=== PATIENT | female | born 1935 | race Hispanic/Latino ===

== ENCOUNTER 2017-07-05 10:25 | Inpatient (IN) | payer MEDICARE, OTHER ==
[~2017-07-05] VITALS: Ht 154.9 cm; Wt 78.5 kg
[2017-07-05 14:02] LABS: BASOPHILS # (AUTO) 0.1 (0.0-0.1); BASOPHILS % 0.6 % (0.0-1.0); EOSINOPHILS # (AUTO) 0.2 (0.0-0.4); EOSINOPHILS % 2.9 % (0.0-6.0); LYMPHOCYTES # (AUTO) 1.6 (1.0-3.2); LYMPHOCYTES % 19.6 % (18.0-39.1); MEAN CORPUSCULAR HEMOGLOBIN 23.2 pg (28-32); MEAN CORPUSCULAR HGB CONC 30.2 g/dL (31-35); MEAN CORPUSCULAR VOLUME 76.8 fL (81-99); MONOCYTES # (AUTO) 0.7 (0.2-0.8); MONOCYTES % 8.2 % (4.4-11.3); NEUTROPHILS # (AUTO) 5.4 (2.1-6.9); NEUTROPHILS % 67.8 % (38.7-80.0); PLATELET COUNT 323 x10e3/uL (140-360); RED BLOOD COUNT 3.23 x10e6/uL (3.6-5.1); RED CELL DISTRIBUTION WIDTH 18.4 % (11.7-14.4)
[2017-07-05 14:07] LABS: HEMATOCRIT 24.8 % (34.2-44.1); HEMOGLOBIN 7.5 g/dL (12.0-16.0)
[2017-07-05 14:12] LABS: INR 0.84; PROTHROMBIN TIME 11.9 seconds (11.9-14.5)
[2017-07-05 14:13] LABS: PARTIAL THROMBOPLASTIN TIME 21.8 seconds (23.8-35.5)
[2017-07-05 14:20] LABS: ALBUMIN 3.5 g/dL (3.5-5.0); ALBUMIN/GLOBULIN RATIO 0.8 (0.8-2.0); ANION GAP 15.1 mmol/L (8-16); CALCIUM 9.5 mg/dL (8.4-10.2); CREATININE, SERUM 1.78 mg/dL (0.57-1.11); POTASSIUM 4.1 mmol/L (3.5-5.1)
[2017-07-05 14:26] LABS: CREATINE KINASE MB 1.9 ng/mL (0.00-5.00); TROPONIN I 0.033 ng/mL (0-0.300)
[2017-07-05 16:06] LABS: BILIRUBIN,URINE NEGATIVE (NEGATIVE); KETONES,URINE NEGATIVE (NEGATIVE); LEUKOCYTE ESTERASE ,URINE 2+ (NEGATIVE); NITRITE,URINE NEGATIVE (NEGATIVE); PROTEIN,URINE DIPSTICK NEGATIVE (NEGATIVE); URINE UROBILINOGEN 0.2 mg/dL (0.2 - 1)
[2017-07-05 16:08] LABS: CLARITY,URINE HAZY (CLEAR); COLOR,URINE YELLOW (YELLOW)
[2017-07-05 16:25] LABS: EPITHELIAL CELLS,URINE MANY /LPF
[2017-07-05 16:30] LABS: WBC,URINE (MAN) 21-50 /HPF (0-5)
[2017-07-05 16:34] LABS: BACTERIA,URINE FEW /HPF
[2017-07-05] MEDS ORDERED: ACETAMINOPHEN 325 MG TAB PO STA (17:54)
[2017-07-05] MEDS ORDERED: SODIUM CHLORIDE FLUSH 10 ML SYR INJ PRN (18:00)
[2017-07-05] MEDS ORDERED: SODIUM CHLORIDE 0.9% 250ML 250 ML IV ONE (18:00)
[2017-07-05] MEDS ORDERED: DIPHENHYDRAMINE HCL INJ 50 MG/ML VIAL IV ONE (18:00)
[2017-07-05] MEDS: SODIUM CHLORIDE 0.9% 1000ML 1,000 ML IV SCH (18:29)
[2017-07-05] MEDS ORDERED: HYDRALAZINE HCL 20 MG/ML VIAL IV PRN (18:45)
[2017-07-05] MEDS: DOCUSATE SODIUM 100 MG CAP PO SCH (21:00)
[2017-07-05 21:01] LABS: % IRON SATURATION 10 % (15-50); IRON 53 ug/dL (50-170); TOTAL IRON BINDING CAPACITY 546 ug/dL (261-478); TRANSFERRIN 390 mg/dL (180-382)
[2017-07-05] MEDS ORDERED: SODIUM CHLORIDE 0.9% 250ML 250 ML ONE ×3 (21:04→22:50)
--- NOTE | 2017-07-05 21:09 | History and Physical ---
CHIEF COMPLAINT: This 82-year-old lady comes in with history of possible GI bleed and low hemoglobin. HISTORY OF PRESENT ILLNESS: Mrs. García is an 82-year-old lady with a history of diabetes mellitus, history of hypertension, history of dementia. She was in her usual state of health until about one day prior to admission the patient was told that her hemoglobin was low, to be less than 7, actual number is not known. The patient comes in here and was sent to the emergency room for possible GI bleed. HOME MEDICATIONS: We do not know. The family has not brought to us. PAST MEDICAL HISTORY: History of COPD, history of diabetes mellitus, history of hypertension, dementia. PAST SURGICAL HISTORY: History of pacemaker placement, history of hysterectomy, history of multiple foot surgeries and also history of cataract surgeries. The patient had a colonoscopy about a year ago with Dr. Smith Herrera. SOCIAL HISTORY: Lives with daughter, who is the primary showplace manager. REVIEW OF SYSTEMS: Negative for chest pain, positive for memory loss, no nausea, vomiting, no diarrhea, no constipation, no rectal bleeding noted. PHYSICAL EXAMINATION GENERAL: The patient is alert and oriented x2, is wanting to go home and has a recurrent speech of wanting to go home. VITAL SIGNS: Temperature 95.9, blood pressure 154/68, the last one was 182/94. HEENT: Normocephalic, atraumatic. Pupils reactive to light and accommodation. CVS: S1 and S2 normal. Regular rate and rhythm. ABDOMEN: Nontender, nondistended. EXTREMITIES: Trace edema wit no clubbing. LABORATORY DATA: Initial white count was 7.9, hemoglobin 7.5, hematocrit 24.8. Chemistry: BUN 45, creatinine 1.7 with estimated GFR of 27. Urine with white count 21-50, white cells with leukocyte esterase. Coags: PT and INR 11 and 0.85 with a PTT of 21.8. ASSESSMENT 1. Gastrointestinal bleed. Will continue to monitor the patient. The patient does have elevated BUN and creatinine which is indicative of gastrointestinal bleed. Will continue with fluids. 2. Acute kidney injury. 3. History of diabetes. 4. Hypertension. 5. Hyperlipidemia. 6. Chronic obstructive pulmonary disease. PLAN: Will get home medications, restart medications. Now, will go ahead and transfuse the patient on 2 [address] A consult with Dr. Hrerera has also been given. Further recommendations depending on clinical course. Will talk to the daughter. She is a full code at this point in time. Job#: [id number] PELON
--- NOTE | 2017-07-06 01:28 | Consultation ---
DATE OF CONSULTATION: July 05, 2017 GI CONSULT NOTE DATE OF : 1935 CONSULTING PHYSICIAN: Alok Pedersen MD REASON FOR CONSULT: Recurrent rectal bleeding for 3-5 days. HISTORY OF PRESENTING ILLNESS: An 82-year-old very female for whom I cannot derive any history. She is very delirious, agitated, and incoherent at this time. Patient's daughter is available at the bedside. She stated that her mom has dementia. So, most of my information is derived from her daughter. She stated that she brought her mom here because she has been having rectal bleeding, usually bright and sometimes dark blood after passing very hard stool. She is also not having bowel movements regularly. She is having constipation. Four days ago when she passed hard stool after that she was noticed to have bright red blood on her wipes. Ever since, she has been trying to move her bowels, but only small amount of hard stools comes associated with some blood. Home health physician visited her and directed patient's daughter to bring her to emergency room. Patient does take Eliquis for some cardiac dysrhythmia. Eliquis has been withheld. Patient does not have any associated abdominal pain. No upper GI symptoms. REVIEW OF SYSTEMS: Unobtainable. PAST MEDICAL HISTORY: Dementia, some kind cardiac dysrhythmia. PAST SURGICAL HISTORY: Unavailable. She does have some abdominal surgery. FAMILY HISTORY: Noncontributory. SOCIAL HISTORY: No smoking, alcohol or any illicit drug use. ALLERGIES: None. HOME MEDICATIONS: Reviewed as per AUG. INPATIENT MEDICATIONS: Reviewed as per AUG. PHYSICAL EXAMINATION VITAL SIGNS: Temperature 97.5, pulse 66, respirations 19, blood pressure 189/72, oxygen saturation 97% on room air. GENERAL: Confused, delirious, and incoherent. Obese body habitus. HEENT: Moist mucous membrane. Anicteric sclerae. No neck or axillary adenopathy. CVS: S1, S2, regular. LUNGS: Bilaterally grossly clear; however, patient has very poor inspiratory effort. ABDOMEN: Obese, soft, mild gastric distention, nontender. No palpable mass or hernia. There is a linear surgical scar in the lower quadrant. Bowel sounds present. EXTREMITIES: Warm. No leg edema. RECTAL: Impacted solid stool in the rectum. This was disimpacted digitally. Large amount of solid stool evacuated. No palpable mass in the rectum. Palpable internal hemorrhoids, hypertrophied anal papillae with non-thrombosed external hemorrhoids. LAB: WBC 7.97, hemoglobin 7.5 [baseline hemoglobin not available], hematocrit 34.9, and MCV 76.8, platelet count 323,000. Electrolytes normal with BUN 45, creatinine 1.78. Liver tests normal. PT 11.9, INR 0.84. Urinalysis showed leukocyte esterase 2+, WBC 21-50. IMPRESSIONS 1. Rectal bleeding, outlet type from hemorrhoids secondary to constipation and fecal impaction. 2. Microcytic anemia. 3. Urinary tract infection. PLAN: From GI standpoint, patient should be on a good bowel regimen, enema. Avoid medication which can cause constipation. Patient is not having any active GI bleeding. She is certainly having microcytic anemia; therefore, will check iron profile. Stool is going to be heme-positive given hemorrhoid stool is already dark and mixed with bright red blood from the hemorrhoids. Therefore, no point of doing stool guaiac. Transfuse 1 unit of packed red blood cell if it is required from cardiac standpoint. Will put her on clear liquid diet. If iron profile is consistent with iron deficiency, then definitely patient needs a GI endoscopy, first upper endoscopy, as well as colonoscopy. In the interim, since Eliquis is on hold; therefore, obtain cardiology clearance prior to the procedure. I thank, Dr. Dickinson, for allowing me to participate in the care of this patient. Job#: [id number] CQ
[2017-07-06] MEDS: SODIUM CHLORIDE 0.9% 1000ML 1,000 ML IV SCH ×3 (02:41→17:54)
[2017-07-06] MEDS ORDERED: SODIUM CHLORIDE 0.9% 250ML 250 ML ONE (03:47)
[2017-07-06 04:44] VITALS: BP 179/81
[2017-07-06] MEDS ORDERED: LORAZEPAM INJ 2 MG/ML VIAL IV PRN (07:30)
[2017-07-06] MEDS ORDERED: FUROSEMIDE INJ 10 MG/ML 2 ML VIAL IV PRN (07:30)
[2017-07-06] MEDS ORDERED: PANTOPRAZOLE 40 MG 10ML VIAL IV SCH (09:00)
[2017-07-06] MEDS: POLYETHYLENE GLYCOL 3350 17 GM PACK PO SCH ×4 (09:45→21:47)
[2017-07-06 12:55] LABS: BASOPHILS % 0.5 % (0.0-1.0); EOSINOPHILS # (AUTO) 0.1 (0.0-0.4); EOSINOPHILS % 0.9 % (0.0-6.0); HEMATOCRIT 31.3 % (34.2-44.1); HEMOGLOBIN 9.9 g/dL (12.0-16.0); LYMPHOCYTES # (AUTO) 1.4 (1.0-3.2); LYMPHOCYTES % 16.5 % (18.0-39.1); MEAN CORPUSCULAR HEMOGLOBIN 24.8 pg (28-32); MEAN CORPUSCULAR HGB CONC 31.6 g/dL (31-35); MEAN CORPUSCULAR VOLUME 78.3 fL (81-99); MONOCYTES # (AUTO) 0.9 (0.2-0.8); MONOCYTES % 10.7 % (4.4-11.3); NEUTROPHILS % 70.8 % (38.7-80.0); PLATELET COUNT 293 x10e3/uL (140-360); RED CELL DISTRIBUTION WIDTH 17.7 % (11.7-14.4)
[2017-07-06 13:16] LABS: INR 0.95; PROTHROMBIN TIME 13.2 seconds (11.9-14.5)
[2017-07-06 13:17] LABS: PARTIAL THROMBOPLASTIN TIME 24.8 seconds (23.8-35.5)
[2017-07-06 13:24] LABS: ALBUMIN 3.2 g/dL (3.5-5.0); ALBUMIN/GLOBULIN RATIO 0.8 (0.8-2.0); ANION GAP 15.2 mmol/L (8-16); CALCIUM 9.3 mg/dL (8.4-10.2); CREATININE, SERUM 1.3 mg/dL (0.57-1.11); POTASSIUM 3.2 mmol/L (3.5-5.1)
[2017-07-06] MEDS ORDERED: POTASSIUM CHLO20 ME1 PO (18:51)
[2017-07-06] MEDS ORDERED: GABAPENTIN100 MG PO (19:49)
[2017-07-06] MEDS ORDERED: IBANDRONATE SO150 MG PO (19:49)
[2017-07-06] MEDS ORDERED: LEVOTHYROXINE75 MCG PO (19:50)
[2017-07-06] MEDS ORDERED: LEVEMIR100 UNIT/1 SQ (19:52)
[2017-07-06] MEDS ORDERED: MONTELUKAST SOD10 MG PO (19:54)
[2017-07-06] MEDS ORDERED: ISOSORBIDE MONO30 MG PO (19:55)
[2017-07-06] MEDS ORDERED: CLONIDINE HCL0.2 MG PO (19:57)
[2017-07-06] MEDS ORDERED: FUROSEMIDE40 MG PO (19:59)
[2017-07-06 20:00] VITALS: BP 193/79
[2017-07-06] MEDS ORDERED: OMEPRAZOLE20 MG PO (20:02)
[2017-07-06] MEDS ORDERED: GLIPIZIDE5 MG PO (20:03)
[2017-07-06] MEDS ORDERED: ATORVASTATIN CA10 MG PO (20:06)
[2017-07-06] MEDS ORDERED: HYDRALAZINE HCL25 MG PO (20:07)
[2017-07-06] MEDS ORDERED: ALLOPURINOL100 MG PO (20:08)
[2017-07-06] MEDS ORDERED: eliquis PO (20:17)
[2017-07-06] MEDS ORDERED: INSULIN DETEMIR 100 UNIT/ML PEN SQ SCH (21:00)
[2017-07-06] MEDS ORDERED: ATORVASTATIN 10 MG TAB PO SCH (21:00)
[2017-07-06] MEDS ORDERED: POTASSIUM CHLORIDE 20 MEQ TAB CR PO SCH (21:00)
[2017-07-06] MEDS ORDERED: MONTELUKAST SODIUM 10 MG TAB PO SCH (21:00)
[2017-07-06] MEDS ORDERED: GLIPIZIDE 5 MG TAB PO SCH (21:00)
[2017-07-06 21:43] LABS: BASOPHILS # (AUTO) 0.1 (0.0-0.1); BASOPHILS % 0.5 % (0.0-1.0); EOSINOPHILS # (AUTO) 0.1 (0.0-0.4); EOSINOPHILS % 1.2 % (0.0-6.0); HEMATOCRIT 33.8 % (34.2-44.1); HEMOGLOBIN 10.7 g/dL (12.0-16.0); LYMPHOCYTES # (AUTO) 2.6 (1.0-3.2); LYMPHOCYTES % 27.9 % (18.0-39.1); MEAN CORPUSCULAR HEMOGLOBIN 24.2 pg (28-32); MEAN CORPUSCULAR HGB CONC 31.7 g/dL (31-35); MEAN CORPUSCULAR VOLUME 76.3 fL (81-99); MONOCYTES # (AUTO) 1.1 (0.2-0.8); MONOCYTES % 11.9 % (4.4-11.3); NEUTROPHILS # (AUTO) 5.4 (2.1-6.9); NEUTROPHILS % 57.9 % (38.7-80.0); PLATELET COUNT 322 x10e3/uL (140-360); RED BLOOD COUNT 4.43 x10e6/uL (3.6-5.1); RED CELL DISTRIBUTION WIDTH 17.7 % (11.7-14.4)
[2017-07-06] MEDS: HYDRALAZINE HCL 25 MG TAB PO SCH (21:46)
[2017-07-06] MEDS: CLONIDINE HCL 0.2 MG TAB PO SCH (21:46)
[2017-07-06] MEDS: DOCUSATE SODIUM 100 MG CAP PO SCH (21:46)
[2017-07-06 23:07] VITALS: BP 193/79
--- NOTE | 2017-07-06 23:08 | Progress Note ---
DATE: July 06, 2017 SUBJECTIVE: Patient reports no abdominal pain. Tolerating oral liquids. Bowel movement with soft brown stool. REVIEW OF SYSTEMS: GENERAL: No fever or chills. CVS: No chest pain, palpitation. RESPIRATORY: No cough or expectoration. MEDICATIONS: Reviewed, as per AUG. PHYSICAL EXAMINATION: VITAL SIGNS: Temperature 98.1, pulse 78 to 81, respiration 16, blood pressure 193/79 to 162/72, oxygen saturation 94% on room air. GENERAL: Not in any apparent distress. HEENT: Oral mucosa is moist. Anicteric sclerae. CVS: S1 and S2 regular with pacemaker in the left anterior chest wall. LUNGS: Bilaterally grossly clear. ABDOMEN: Obese, nondistended, nontender. No palpable mass or hernia. Positive bowel sounds. EXTREMITIES: Warm. No leg edema. LABS: WBC 9.39, hemoglobin 10.7, hematocrit 33.8, MCV 76.3, platelet count 322,000. Sodium 141, potassium 3.2, chloride 99, bicarb 30, BUN 30, creatinine 1.30. IMPRESSION: Rectal bleeding secondary to fecal impaction, likely hemorrhoidal. Hemoglobin is stable. It has gone up from 7.5 to 10.7 without any blood transfusion. RECOMMENDATION: Resume Eliquis if it is needed for cardiac dysrhythmia (probably AFib). Advance to solid diabetic diet. No need to monitor hemoglobin anymore. Patient can also be discharged from GI standpoint. Job#: [id number]
[2017-07-07] VITALS: BP 154/67
[2017-07-07] MEDS: SODIUM CHLORIDE 0.9% 1000ML 1,000 ML IV SCH ×2 (02:53→09:54)
[2017-07-07 04:00] VITALS: BP_SYST 139; BP_SYST 172; BP_DIAS 62; BP_DIAS 79
[2017-07-07] MEDS ORDERED: LEVOTHYROXINE SODIUM 75 MCG TAB PO SCH (06:00)
[2017-07-07 07:40] VITALS: BP 139/62
[2017-07-07 08:12] VITALS: BP 138/79
[2017-07-07] MEDS: HYDRALAZINE HCL 25 MG TAB PO SCH (08:19)
[2017-07-07] MEDS: CLONIDINE HCL 0.2 MG TAB PO SCH (08:19)
[2017-07-07] MEDS ORDERED: APIXAB 2.5 MG TABLET PO SCH ×2 (09:00)
[2017-07-07] MEDS ORDERED: ISOSORBIDE MONONITRATE 30 MG TAB CR PO SCH (09:00)
[2017-07-07] MEDS ORDERED: PANTOPRAZOLE SOD 40 MG TABEC PO SCH (09:00)
[2017-07-07] MEDS ORDERED: GABAPENTIN 100 MG CAP PO SCH (09:00)
[2017-07-07] MEDS ORDERED: ALLOPURINOL 100 MG TAB PO SCH (09:00)
[2017-07-07] MEDS ORDERED: IBANDRONATE SODIUM 150 MG PO SCH (09:00)
[2017-07-07] MEDS: POLYETHYLENE GLYCOL 3350 17 GM PACK PO SCH (09:00)
[2017-07-07] MEDS ORDERED: FUROSEMIDE 40 MG TAB PO SCH (09:00)
[2017-07-07 12:01] VITALS: BP 120/57
[2017-07-07] MEDS ORDERED: AMLODIPINE BESYL5 MG PO (13:49)
== END 2017-07-07 14:24 | disposition home or self-care (01) | DRG 389 ==
LOC: ER 10:25 → ERHOLD 18:08 → MED/SURG 18:59
PROVIDERS: ADMIT Family Medicine; ATTEND Family Medicine
DX: K56.41 Fecal impaction (principal); N39.0 Urinary tract infection, site not specified; N17.9 Acute kidney failure, unspecified; F03.90 Unspecified dementia, unspecified severity, without behavioral disturbance, psychotic disturbance, mood disturbance, and anxiety; I48.91 Unspecified atrial fibrillation; D64.9 Anemia, unspecified; I10 Essential (primary) hypertension; E11.9 Type 2 diabetes mellitus without complications; J44.9 Chronic obstructive pulmonary disease, unspecified; K21.9 Gastro-esophageal reflux disease without esophagitis; M10.9 Gout, unspecified; Z95.810 Presence of automatic (implantable) cardiac defibrillator
CPT/HCPCS: 36415; 36430; 80053; 81001; 82550; 82553; 82728; 82948; 83540; 84466; 84484; 85025; 85610; 85730; 86850; 86900; 86920; 93005; 99284; J0360; J1940; J7030; J7050; P9016

== ENCOUNTER 2018-05-05 12:27 | Inpatient (IN) | payer MEDICARE, OTHER ==
[~2018-05-05] VITALS: Ht 154.9 cm; Wt 81.6 kg
[~2018-05-05 12:27] MED LIST: ALLOPURINOL100 MG PO; AMLODIPINE BESYL5 MG PO; ATORVASTATIN CA10 MG PO; CLONIDINE HCL0.2 MG PO; FUROSEMIDE40 MG PO; GABAPENTIN100 MG PO; GLIPIZIDE5 MG PO; HYDRALAZINE HCL25 MG PO; IBANDRONATE SO150 MG PO; ISOSORBIDE MONO30 MG PO; LEVEMIR100 UNIT/1 SQ; LEVOTHYROXINE75 MCG PO; MONTELUKAST SOD10 MG PO; OMEPRAZOLE20 MG PO; POTASSIUM CHLO20 ME1 PO; eliquis PO
--- NOTE | 2018-05-05 13:45 | Diagnostic Imaging Report ---
EXAM: XR CHEST 2 VIEWS DATE: 05/05/2018 1:03 PM INDICATION: Infection COMPARISON: None FINDINGS: Lines and Tubes: Left chest wall pacemaker leads overlying right atrium and right ventricle. Heart and Mediastinum: Heart enlarged. Aortic vascular calcifications and possible prominence pulmonary trunk. Lungs and Pleura: Mild edema with basilar atelectasis. Bones and Soft Tissues: Advanced degenerative changes shoulders. IMPRESSION: 1. Mild edema. Superimposed infectious process difficult to exclude. Signed by: Dr. Patrick Simon MD on 05/05/2018 1:41 PM
[2018-05-05 13:54] LABS: BILIRUBIN,URINE NEGATIVE (NEGATIVE); CLARITY,URINE HAZY (CLEAR); COLOR,URINE YELLOW (YELLOW); KETONES,URINE NEGATIVE (NEGATIVE); LEUKOCYTE ESTERASE ,URINE 2+ (NEGATIVE); NITRITE,URINE NEGATIVE (NEGATIVE); PROTEIN,URINE DIPSTICK NEGATIVE (NEGATIVE); URINE UROBILINOGEN 0.2 mg/dL (0.2 - 1); WBC,URINE (MAN) 21-50 /HPF (0-5)
[2018-05-05 13:55] LABS: BACTERIA,URINE MANY /HPF; EPITHELIAL CELLS,URINE FEW /LPF; MUCUS,URINE FEW (RARE)
[2018-05-05 15:20] VITALS: BP 193/79
[2018-05-05 16:37] LABS: BASOPHILS % 0.5 % (0.0-1.0); EOSINOPHILS # (AUTO) 0.2 (0.0-0.4); EOSINOPHILS % 2.1 % (0.0-6.0); HEMATOCRIT 32.8 % (34.2-44.1); LYMPHOCYTES # (AUTO) 1.8 (1.0-3.2); LYMPHOCYTES % 24.2 % (18.0-39.1); MEAN CORPUSCULAR HEMOGLOBIN 24.6 pg (28-32); MEAN CORPUSCULAR HGB CONC 30.5 g/dL (31-35); MEAN CORPUSCULAR VOLUME 80.8 fL (81-99); MONOCYTES # (AUTO) 0.7 (0.2-0.8); MONOCYTES % 9.2 % (4.4-11.3); NEUTROPHILS # (AUTO) 4.8 (2.1-6.9); NEUTROPHILS % 63.5 % (38.7-80.0); PLATELET COUNT 201 x10e3/uL (140-360); RED BLOOD COUNT 4.06 x10e6/uL (3.6-5.1); RED CELL DISTRIBUTION WIDTH 19.2 % (11.7-14.4)
[2018-05-05 16:49] LABS: ALBUMIN 3.4 g/dL (3.5-5.0); ALBUMIN/GLOBULIN RATIO 0.9 (0.8-2.0); ANION GAP 16.5 mmol/L (8-16); CALCIUM 9.1 mg/dL (8.4-10.2); CREATININE, SERUM 1.48 mg/dL (0.57-1.11); POTASSIUM 3.5 mmol/L (3.5-5.1)
[2018-05-05 17:20] VITALS: BP 193/79
[2018-05-05] MEDS ORDERED: SODIUM CHLORIDE 0.9% 1000ML 1,000 ML IV ONE (17:30)
[2018-05-05] MEDS ORDERED: ONDANSETRON HCL INJ 2 MG/ML VIAL IV PRN (17:30)
[2018-05-05] MEDS ORDERED: DEXTROSE 50% SYRINGE 50 ML IV PRN (17:30)
--- OUTSIDE RECORDS SUMMARY | 2018-05-05 17:31 | XMS REPORT ---
Author [facility] Address Unknown Phone Unavailable Care Team Providers Care Hand Or Machine Paster Name Role Phone Aravind ASHTON Unavailable Unavailable Problems This patient has no known problems. Allergies, Adverse Reactions, Alerts This patient has no known allergies or adverse reactions. Medications This patient has no known medications. Results Test Description Test Time Test Comments Text Results Atomic Results Result Comments CHEST 2 VIEWS 2018-05-05 13:35:00 [place] [address] Patient Name: DA LORD MR #: [id number] : 1935 Age/Sex: 83/F Req #: [id number] Adm Physician: Ordered by: LIVIER ASHTON MD Report #: [id number] Location: ER Room/Bed: Procedure: [id number] DX/CHEST 2 VIEWS Exam Date: 05/05/18 Exam Time: 1330 REPORT STATUS: Signed EXAM: XR CHEST 2 VIEWS DATE: 05/05/2018 1:03 PM TITI CATION: Infection COMPARISON: None FINDINGS: Lines and Tubes: Left chest wall pacemaker leads overlying right atrium and right ventricle. Heart and Mediastinum: Heart enlarged. Aortic vascular calcifications and possible prominence pulmonary trunk. Lungs and Pleura: Mild edema with basilar atelectasis. Bones and Soft Tissues: Advanced degenerative changes shoulders. IMPRESSION: 1. Mild edema. Superimposed infectious process difficult to exclude. Signed by: Dr. Patrick Cruz MD on 05/05/2018 1:41 PM Dictated By: PATRICK CRUZ MD [id number] Transcribed By: MICHELE on 05/05/18 1341 COPY TO: LIVIER ASHTON MD
[2018-05-05 18:43] VITALS: BP 193/79
[2018-05-05 20:00] VITALS: BP 158/74
[2018-05-05] MEDS ORDERED: MEROPENEM 1GM 100 ML IV SCH (20:00)
[2018-05-05] MEDS ORDERED: SODIUM CHLORIDE 0.9% 1000ML 1,000 ML ONE (21:24)
[2018-05-05] MEDS: CLONIDINE HCL 0.2 MG TAB PO SCH (22:08)
[2018-05-05] MEDS: POTASSIUM CHLORIDE 20 MEQ TAB CR PO SCH (22:09)
[2018-05-05] MEDS: HYDRALAZINE HCL 25 MG TAB PO SCH (22:09)
[2018-05-05] MEDS: MEROPENEM 1 GM VIAL IV SCH (22:09)
[2018-05-05] MEDS: MONTELUKAST SODIUM 10 MG TAB PO SCH (22:09)
[2018-05-05] MEDS: ATORVASTATIN 10 MG TAB PO SCH (22:09)
[2018-05-05] MEDS: GLIPIZIDE 5 MG TAB PO SCH (22:09)
[2018-05-05] MEDS: INSULIN LISPRO 100 UNIT/1 ML 3ML VIAL SQ SCH (22:10)
[2018-05-06] VITALS: BP 152/69
[2018-05-06] MEDS: LEVOTHYROXINE SODIUM 75 MCG TAB PO SCH (05:24)
[2018-05-06 05:59] VITALS: BP 149/65
[2018-05-06 07:08] LABS: BASOPHILS % 0.5 % (0.0-1.0); EOSINOPHILS # (AUTO) 0.2 (0.0-0.4); EOSINOPHILS % 2.4 % (0.0-6.0); HEMATOCRIT 30.4 % (34.2-44.1); HEMOGLOBIN 9.2 g/dL (12.0-16.0); LYMPHOCYTES # (AUTO) 1.6 (1.0-3.2); LYMPHOCYTES % 23.8 % (18.0-39.1); MEAN CORPUSCULAR HEMOGLOBIN 24.4 pg (28-32); MEAN CORPUSCULAR HGB CONC 30.3 g/dL (31-35); MEAN CORPUSCULAR VOLUME 80.6 fL (81-99); MONOCYTES # (AUTO) 0.6 (0.2-0.8); MONOCYTES % 8.9 % (4.4-11.3); NEUTROPHILS # (AUTO) 4.2 (2.1-6.9); NEUTROPHILS % 63.9 % (38.7-80.0); PLATELET COUNT 189 x10e3/uL (140-360); RED BLOOD COUNT 3.77 x10e6/uL (3.6-5.1); RED CELL DISTRIBUTION WIDTH 19.3 % (11.7-14.4)
[2018-05-06 07:28] LABS: ANION GAP 14.4 mmol/L (8-16); CALCIUM 8.5 mg/dL (8.4-10.2); CREATININE, SERUM 1.25 mg/dL (0.57-1.11); POTASSIUM 3.4 mmol/L (3.5-5.1)
[2018-05-06] MEDS: INSULIN LISPRO 100 UNIT/1 ML 3ML VIAL SQ SCH ×4 (07:30→21:47)
[2018-05-06] MEDS: CLONIDINE HCL 0.2 MG TAB PO SCH ×3 (08:34→21:33)
[2018-05-06] MEDS: MEROPENEM 1 GM VIAL IV SCH ×2 (08:34→21:46)
[2018-05-06] MEDS: HYDRALAZINE HCL 25 MG TAB PO SCH ×3 (08:34→21:32)
[2018-05-06] MEDS: PANTOPRAZOLE SOD 40 MG TABEC PO SCH (08:34)
[2018-05-06] MEDS: AMLODIPINE BESYLATE 5 MG TAB PO SCH (08:35)
[2018-05-06] MEDS: GABAPENTIN 100 MG CAP PO SCH ×2 (08:35→17:30)
[2018-05-06] MEDS: FUROSEMIDE 40 MG TAB PO SCH ×2 (08:35→17:30)
[2018-05-06] MEDS: ALLOPURINOL 100 MG TAB PO SCH (08:35)
[2018-05-06 08:42] VITALS: BP 194/84
[2018-05-06] MEDS: APIXAB 2.5 MG TABLET PO SCH ×2 (10:31→17:30)
[2018-05-06 12:01] VITALS: BP 193/80
--- NOTE | 2018-05-06 12:32 | History and Physical ---
CHIEF COMPLAINT: An 83-year-old comes in with urinary tract infections multiple in nature. HISTORY OF PRESENT ILLNESS: Patient is an 83-year-old female poor historian. Patient complains of some abdominal pain, some fatigue. Nurse did want us to talk to her daughter, Leah and did make a phone call, was not available. The patient continues to have some fatigue and shortness of breath. PAST MEDICAL HISTORY: History of hypertension, history of coronary artery disease, history of hyperlipidemia, history of hypothyroidism, history of allergies, history of reflux esophagitis, history of gouty arthritis, and history of AICD implant. SURGICAL HISTORY: Includes hysterectomy, history of pacemaker placement, AICD placement. SOCIAL HISTORY: Lives with daughter. MEDICATIONS: Includes; 1. Allopurinol 100 mg. 2. Amlodipine 5 mg. 3. Atorvastatin 10 mg. 4. Clonidine 0.2 mg. 5. Lasix 40 mg. 6. Gabapentin 100 mg. 7. Hydralazine 25 mg. 8. Ibandronate which is Boniva 150 mg. 9. Levemir 20 units at night time. 10. Isosorbide 60 mg daily. 11. Levothyroxine 75 mcg. 12. Montelukast 10 mg. 13. Omeprazole 20 mg. 14. Potassium chloride 20 mEq. 15. Eliquis 2.5 mg twice a day. REVIEW OF SYSTEMS: Negative for chest pain. Positive for some shortness of breath. No nausea, vomiting, or diarrhea. Positive for abdominal pain. No dysuria. No hematuria. No abdominal pain. PHYSICAL EXAMINATION GENERAL: Patient is alert and oriented x2, difficult to communicate with. VITAL SIGNS: Temperature is 97.5, pulse of 71, respirations of 19, and blood pressure is 150/69. HEENT: Normocephalic, atraumatic. Normal infection. CV: S1, S2 normal. LUNGS: Decreased air entry in the bases. Positive for some crackles. ABDOMEN: Nontender, nondistended. EXTREMITIES: No clubbing. No cyanosis. Trace edema. NEUROLOGICAL: Altered mental status, disoriented. LABORATORY VALUES: Patient's white count is normal, hemoglobin is 10.0, hematocrit of 32.8. Chemistries show a sodium 143, potassium of 3.4, creatinine is 1.25, and BUN is 30, is 41. Urine shows multiple wbc's, bacteria many, mucus plus. ASSESSMENT 1. Urinary tract infection, recurrent. 2. History of congestive heart failure. We are going to check BNP and echocardiogram. Patient is on Merrem for acute urinary tract infection. Microbiology, blood cultures and urine cultures are pending and we will continue on Merrem right now and wait for cultures. 3. Hypertension. We will continue on her home medications. 4. Hypothyroidism. We will continue the same. Check TSH. 5. Diabetes, on insulin sliding scale and also order regular insulin. Further recommendation and clinical course, she is also on anticoagulation that will push which will continue. Also, patient has chronic kidney disease and we will monitor her BNP on a regular basis. We will had a BNP today. Job#: [id number] [place]ON
[2018-05-06] MEDS ORDERED: POTASSIUM CHLORIDE 20 MEQ TAB CR PO ONE (13:00)
[2018-05-06 16:26] VITALS: BP 171/76
[2018-05-06 20:00] VITALS: BP 182/81
[2018-05-06] MEDS: ISOSORBIDE MONONITRATE 30 MG TAB CR PO SCH (21:32)
[2018-05-06] MEDS: MONTELUKAST SODIUM 10 MG TAB PO SCH (21:33)
[2018-05-06] MEDS: ATORVASTATIN 10 MG TAB PO SCH (21:33)
[2018-05-06] MEDS: POTASSIUM CHLORIDE 20 MEQ TAB CR PO SCH (21:33)
[2018-05-06] MEDS: GLIPIZIDE 5 MG TAB PO SCH (21:33)
[2018-05-06] MEDS: ALBUTEROL/IPRATROPIUM 3 ML NEB NEB PRN (21:40)
[2018-05-06] MEDS: INSULIN DETEMIR 100 UNIT/ML PEN SQ SCH (21:47)
[2018-05-07] VITALS (7 sets, daily range): BP systolic 128–188; BP diastolic 65–77
[2018-05-07] MEDS: LEVOTHYROXINE SODIUM 75 MCG TAB PO SCH (05:31)
[2018-05-07 05:52] LABS: BASOPHILS % 0.6 % (0.0-1.0); EOSINOPHILS # (AUTO) 0.2 (0.0-0.4); EOSINOPHILS % 2.2 % (0.0-6.0); HEMOGLOBIN 9.2 g/dL (12.0-16.0); LYMPHOCYTES # (AUTO) 1.9 (1.0-3.2); LYMPHOCYTES % 27.7 % (18.0-39.1); MEAN CORPUSCULAR HEMOGLOBIN 24.7 pg (28-32); MEAN CORPUSCULAR HGB CONC 30.7 g/dL (31-35); MEAN CORPUSCULAR VOLUME 80.4 fL (81-99); MONOCYTES # (AUTO) 0.7 (0.2-0.8); MONOCYTES % 10.1 % (4.4-11.3); NEUTROPHILS % 58.8 % (38.7-80.0); PLATELET COUNT 201 x10e3/uL (140-360); RED BLOOD COUNT 3.73 x10e6/uL (3.6-5.1); RED CELL DISTRIBUTION WIDTH 19.5 % (11.7-14.4)
[2018-05-07 06:15] LABS: ANION GAP 14.7 mmol/L (8-16); CALCIUM 8.8 mg/dL (8.4-10.2); CREATININE, SERUM 1.26 mg/dL (0.57-1.11); POTASSIUM 3.7 mmol/L (3.5-5.1)
[2018-05-07] MEDS: PANTOPRAZOLE SOD 40 MG TABEC PO SCH (07:30)
[2018-05-07] MEDS: INSULIN LISPRO 100 UNIT/1 ML 3ML VIAL SQ SCH ×4 (07:30→21:08)
[2018-05-07] MEDS: MEROPENEM 1 GM VIAL IV SCH ×2 (08:40→19:53)
[2018-05-07] MEDS: ALLOPURINOL 100 MG TAB PO SCH (09:26)
[2018-05-07] MEDS: APIXAB 2.5 MG TABLET PO SCH ×2 (09:26→17:42)
[2018-05-07] MEDS: CLONIDINE HCL 0.2 MG TAB PO SCH ×3 (09:26→21:05)
[2018-05-07] MEDS: ISOSORBIDE MONONITRATE 30 MG TAB CR PO SCH (09:26)
[2018-05-07] MEDS: FUROSEMIDE 40 MG TAB PO SCH ×2 (09:26→17:42)
[2018-05-07] MEDS: GABAPENTIN 100 MG CAP PO SCH ×2 (09:26→17:42)
[2018-05-07] MEDS: AMLODIPINE BESYLATE 5 MG TAB PO SCH (09:26)
[2018-05-07] MEDS: HYDRALAZINE HCL 25 MG TAB PO SCH ×3 (09:27→21:05)
[2018-05-07] MEDS ORDERED: CLONIDINE HCL 0.2 MG TAB PO PRN (17:15)
--- NOTE | 2018-05-07 18:14 | Progress Note ---
DATE: May 07, 2018 SUBJECTIVE: The patient is admitted for failed outpatient UTI treatment. The patient is currently confused. The patient has no complaints except for the fact that she does not want telemetry monitoring, and she has ripped it off. She has dementia. OBJECTIVE VITAL SIGNS: Blood pressure is 180/77, temperature 97.1, respirations 22 and pulse of 86. GENERAL: The patient is confused. HEENT: Normocephalic, atraumatic. CVS: S1 and S2 are irregularly irregular. ABDOMEN: Nontender, nondistended. EXTREMITIES: No cyanosis, clubbing or edema. LABORATORY DATA: Today's white count is 6.74, hemoglobin 9.1, hematocrit 30.0. Chemistry: Sodium 143, BUN 28, creatinine ____. Glucose 73. MICROBIOLOGY: Shows E. coli sensitive to Merrem, which she is getting at this time. ASSESSMENT: Urinary tract infection, failed outpatient treatment. Will continue on Merrem for right now. Will give ____ antibiotics and possibly discharge the patient on 100 mg twice a day for 10 days. For her asthma, will give her Albuterol and Atrovent treatments. Allopurinol for her gout. Will also add some clonidine p.r.n. for her blood pressure control. She is on hydralazine at this time. Will continue 100 mg three times a day, and also possibly give her Lasix 20 mg IV in addition to what she has now. Additional diagnoses includes chronic kidney disease, hypertension and dementia. For further information, look in the chart. DISPOSITION: Home in one to two days. Will continue to monitor for right now. Job#: [id number]
[2018-05-07] MEDS ORDERED: FUROSEMIDE INJ 10 MG/ML 2 ML VIAL IV ONE (19:30)
[2018-05-07] MEDS: GLIPIZIDE 5 MG TAB PO SCH (21:05)
[2018-05-07] MEDS: ALBUTEROL/IPRATROPIUM 3 ML NEB NEB PRN (21:05)
[2018-05-07] MEDS: ATORVASTATIN 10 MG TAB PO SCH (21:06)
[2018-05-07] MEDS: MONTELUKAST SODIUM 10 MG TAB PO SCH (21:06)
[2018-05-07] MEDS: POTASSIUM CHLORIDE 20 MEQ TAB CR PO SCH (21:06)
[2018-05-07] MEDS: INSULIN DETEMIR 100 UNIT/ML PEN SQ SCH (21:08)
[2018-05-08] VITALS (7 sets, daily range): BP systolic 135–198; BP diastolic 60–90
[2018-05-08] MEDS: LEVOTHYROXINE SODIUM 75 MCG TAB PO SCH (05:25)
[2018-05-08 05:46] LABS: ANION GAP 15.8 mmol/L (8-16); CALCIUM 9.2 mg/dL (8.4-10.2); CREATININE, SERUM 1.56 mg/dL (0.57-1.11); POTASSIUM 3.8 mmol/L (3.5-5.1)
[2018-05-08] MEDS ORDERED: BACLOFEN 10 MG TAB PO SCH (06:30)
[2018-05-08] MEDS ORDERED: POTASSIUM CHLORIDE 20 MEQ TAB CR PO STA (06:30)
[2018-05-08] MEDS ORDERED: BACLOFEN 10 MG TAB PO ONE (06:30)
--- NOTE | 2018-05-08 07:29 | Progress Note ---
DATE: The patient comes in for recurrent urinary tract infection and failed outpatient treatment of UTI. The patient is currently confused, and she has baseline dementia and weak. She does complain of some right leg pain, which Baclofen was given for her this morning. PHYSICAL EXAM VITALS: Temperature is 97, pulse of 71, blood pressure 135/60, respirations of 22, SpO2 of 96%. HEENT: Normocephalic and atraumatic. GENERAL: Alert and oriented times 1. LUNGS: Clear to auscultation bilaterally. CV: S1 and S2 normal. ABDOMEN: Nontender and nondistended. EXTREMITIES: No clubbing. Trace edema. NEUROLOGIC: Alert and oriented times 1. No focal motor deficits noted. The patient is currently on Merrem 1 g q.12 h. for urinary tract infection. LABORATORY VALUES: Today's sodium is 143, potassium 3.2, chloride of 101, CO2 of 30, BUN 35, creatinine of 1.56. Hemoglobin of 9.2, hematocrit of 30 and platelets of 201,000. PLAN: Continue her on Merrem. Her microbiology shows E. coli sensitive for Merrem. Plan is to give her 3 days of antibiotics in the hospital and discharge her on Macrobid 100 mg twice a day. Will continue her home medications, her cardiovascular medications and also her medicines for diabetes mellitus, which has been maintained for BUN and creatinine of 35 and 1.6. Her chronic kidney disease is stable. Will continue monitoring her BMP tomorrow too. Plan is to give her Baclofen 1 time dose for her muscle spasms, and also replace her potassium to keep the potassium between 4 and 5. ASSESSMENT 1. Urinary tract infection: Failed outpatient treatment. 2. Hypertension. 3. Diabetes with neuropathy. 4. Atrial fibrillation. 5. Hyperlipidemia. 6. History of coronary artery disease. Plan is to continue all home medications and Merrem, and possible discharge tomorrow with Macrobid. For further information, look in the chart. Job#: [id number] MELONY
[2018-05-08] MEDS: INSULIN LISPRO 100 UNIT/1 ML 3ML VIAL SQ SCH ×4 (07:30→20:33)
[2018-05-08] MEDS: ALBUTEROL/IPRATROPIUM 3 ML NEB NEB PRN ×2 (07:49→19:45)
[2018-05-08] MEDS: PANTOPRAZOLE SOD 40 MG TABEC PO SCH (07:58)
[2018-05-08] MEDS: MEROPENEM 1 GM VIAL IV SCH ×2 (08:30→20:32)
[2018-05-08] MEDS: APIXAB 2.5 MG TABLET PO SCH ×2 (09:35→17:25)
[2018-05-08] MEDS: CLONIDINE HCL 0.2 MG TAB PO SCH ×4 (09:35→20:32)
[2018-05-08] MEDS: HYDRALAZINE HCL 25 MG TAB PO SCH ×4 (09:35→20:32)
[2018-05-08] MEDS: ALLOPURINOL 100 MG TAB PO SCH (09:36)
[2018-05-08] MEDS: FUROSEMIDE 40 MG TAB PO SCH ×2 (09:36→17:25)
[2018-05-08] MEDS: ISOSORBIDE MONONITRATE 30 MG TAB CR PO SCH (09:36)
[2018-05-08] MEDS: GABAPENTIN 100 MG CAP PO SCH ×2 (09:36→17:25)
[2018-05-08] MEDS: AMLODIPINE BESYLATE 5 MG TAB PO SCH (09:36)
[2018-05-08] MEDS: GLIPIZIDE 5 MG TAB PO SCH (20:32)
[2018-05-08] MEDS: ATORVASTATIN 10 MG TAB PO SCH (20:32)
[2018-05-08] MEDS: MONTELUKAST SODIUM 10 MG TAB PO SCH (20:32)
[2018-05-08] MEDS: POTASSIUM CHLORIDE 20 MEQ TAB CR PO SCH (20:33)
[2018-05-08] MEDS: INSULIN DETEMIR 100 UNIT/ML PEN SQ SCH (20:46)
[2018-05-09 01:53] VITALS: BP 144/67
[2018-05-09] MEDS ORDERED: MORPHINE SULFATE 2 MG/ML SYR IV STA (01:53)
[2018-05-09 04:00] VITALS: BP 135/61
[2018-05-09] MEDS: LEVOTHYROXINE SODIUM 75 MCG TAB PO SCH (05:54)
--- NOTE | 2018-05-09 07:19 | Progress Note ---
DATE: Patient is currently complaining of some pain. Had a dose of morphine 2 mg yesterday, but currently pain free. No complaints. Has confusion secondary to dementia. PHYSICAL EXAMINATION VITAL SIGNS: Temperature is 97, blood pressure is 133/51, T-max is 99. The patient's pulse ox was 93% on room air. HEENT: Normocephalic and atraumatic. Pupils reactive to light and accommodation. CV: S1 and S2 irregular. ABDOMEN: Nontender and nondistended. EXTREMITIES: No clubbing and trace edema. The patient is currently on Merrem and will continue with that. DIAGNOSES 1. Urinary tract infection: Failed outpatient treatment. Continue on the Merrem. The patient has Escherichia coli, which is sensitive to Macrobid as an outpatient. Can be sent home on Macrobid. Will discuss with social service to see if a SNF evaluation is appropriate for the patient. Will talk to the family too. 2. Hypertension: Continue on cardiovascular medications. 3. Hyperlipidemia: Continue on medications of atorvastatin. 4. Dementia with behavioral changes: Will continue monitoring the patient as needed. 5. Diabetes, well controlled: Will continue with the same medications. 6. Chronic kidney disease: Creatinine last was 1.56. Potassium was 3.8. Continue monitoring the patient. The patient can be discharged home on Macrobid depending on disposition to either usp or home with Macrobid. If the patient goes to a usp, she can get 5 more days of Merrem. For further information, look in the chart. For medicines, look at the medicine sheet. Urine culture grew Escherichia coli. Job#: [id number] MELONY
[2018-05-09] MEDS: INSULIN LISPRO 100 UNIT/1 ML 3ML VIAL SQ SCH ×2 (07:30→11:47)
[2018-05-09 07:58] VITALS: BP 177/81
[2018-05-09] MEDS ORDERED: SODIUM CHLORIDE 0.9% 50ML 50 ML ONE (09:46)
[2018-05-09 09:50] VITALS: BP 177/81
[2018-05-09] MEDS: PANTOPRAZOLE SOD 40 MG TABEC PO SCH (09:53)
[2018-05-09] MEDS: MEROPENEM 1 GM VIAL IV SCH (09:53)
[2018-05-09] MEDS: GABAPENTIN 100 MG CAP PO SCH (09:54)
[2018-05-09] MEDS: APIXAB 2.5 MG TABLET PO SCH (09:54)
[2018-05-09] MEDS: CLONIDINE HCL 0.2 MG TAB PO SCH (09:54)
[2018-05-09] MEDS: ALLOPURINOL 100 MG TAB PO SCH (09:54)
[2018-05-09] MEDS: AMLODIPINE BESYLATE 5 MG TAB PO SCH (09:54)
[2018-05-09] MEDS: FUROSEMIDE 40 MG TAB PO SCH (09:54)
[2018-05-09] MEDS: ISOSORBIDE MONONITRATE 30 MG TAB CR PO SCH (09:54)
[2018-05-09] MEDS: HYDRALAZINE HCL 25 MG TAB PO SCH (09:54)
[2018-05-09 12:02] VITALS: BP 157/74
[2018-05-09] MEDS ORDERED: MACRODANTIN100 MG PO (13:59)
[2018-05-25] MEDS ORDERED: IBANDRONATE SODIUM 150 MG PO SCH (06:00)
== END 2018-05-09 14:15 | disposition home or self-care (01) | DRG 690 ==
LOC: ER 12:27 → ERHOLD 17:05 → MED/SURG3 18:11
PROVIDERS: ADMIT Family Medicine; ATTEND Family Medicine
DX: N39.0 Urinary tract infection, site not specified (principal); F03.91 Unspecified dementia, unspecified severity, with behavioral disturbance; I25.10 Atherosclerotic heart disease of native coronary artery without angina pectoris; Z95.810 Presence of automatic (implantable) cardiac defibrillator; E03.9 Hypothyroidism, unspecified; E78.5 Hyperlipidemia, unspecified; M1A.9XX0 Chronic gout, unspecified, without tophus (tophi); Z79.52 Long term (current) use of systemic steroids; B96.20 Unspecified Escherichia coli [E. coli] as the cause of diseases classified elsewhere; E11.40 Type 2 diabetes mellitus with diabetic neuropathy, unspecified; Z79.4 Long term (current) use of insulin; I12.9 Hypertensive chronic kidney disease with stage 1 through stage 4 chronic kidney disease, or unspecified chronic kidney disease; E11.22 Type 2 diabetes mellitus with diabetic chronic kidney disease; N18.9 Chronic kidney disease, unspecified
CPT/HCPCS: 36415; 71046; 80048; 80053; 81001; 82948; 83605; 83880; 84443; 85025; 87040; 87086; 87186; 93005; 93306; 94640; 96360; 97139; 99284; J1940; J2185; J2270; J7030

== ENCOUNTER 2018-09-15 10:47 | Emergency (ER) | payer MEDICARE, OTHER ==
[~2018-09-15] VITALS: Ht 154.9 cm; Wt 81.6 kg
[~2018-09-15 10:47] MED LIST changes: +MACRODANTIN100 MG PO
[2018-09-15 12:50] LABS: BASOPHILS % 0.4 % (0.0-1.0); EOSINOPHILS # (AUTO) 0.2 (0.0-0.4); EOSINOPHILS % 2.6 % (0.0-6.0); HEMATOCRIT 34.8 % (34.2-44.1); HEMOGLOBIN 10.4 g/dL (12.0-16.0); LYMPHOCYTES # (AUTO) 1.6 (1.0-3.2); LYMPHOCYTES % 22.4 % (18.0-39.1); MEAN CORPUSCULAR HEMOGLOBIN 24.3 pg (28-32); MEAN CORPUSCULAR HGB CONC 29.9 g/dL (31-35); MEAN CORPUSCULAR VOLUME 81.3 fL (81-99); MONOCYTES # (AUTO) 0.6 (0.2-0.8); MONOCYTES % 8.2 % (4.4-11.3); NEUTROPHILS # (AUTO) 4.7 (2.1-6.9); NEUTROPHILS % 66.1 % (38.7-80.0); PLATELET COUNT 211 x10e3/uL (140-360); RED BLOOD COUNT 4.28 x10e6/uL (3.6-5.1); RED CELL DISTRIBUTION WIDTH 17.7 % (11.7-14.4)
[2018-09-15 13:01] LABS: CLARITY,URINE SL CLOUDY (CLEAR); COLOR,URINE YELLOW (YELLOW)
[2018-09-15 13:02] LABS: BILIRUBIN,URINE NEGATIVE (NEGATIVE); KETONES,URINE NEGATIVE (NEGATIVE); LEUKOCYTE ESTERASE ,URINE 1+ (NEGATIVE); NITRITE,URINE NEGATIVE (NEGATIVE); PROTEIN,URINE DIPSTICK NEGATIVE (NEGATIVE); URINE UROBILINOGEN 0.2 mg/dL (0.2 - 1)
[2018-09-15 13:04] LABS: BACTERIA,URINE MANY /HPF; EPITHELIAL CELLS,URINE FEW /LPF; RBC,URINE 0-5 /HPF (0-5); WBC,URINE (MAN) >50 /HPF (0-5)
[2018-09-15 13:05] LABS: ALBUMIN 3.5 g/dL (3.5-5.0); ALBUMIN/GLOBULIN RATIO 0.8 (0.8-2.0); ANION GAP 15.1 mmol/L (8-16); CALCIUM 9.3 mg/dL (8.4-10.2); CREATININE, SERUM 1.91 mg/dL (0.57-1.11); POTASSIUM 5.1 mmol/L (3.5-5.1)
[2018-09-15] MEDS ORDERED: SODIUM CHLORIDE 0.9% 1000ML 1,000 ML IV SCH (13:30)
[2018-09-15] MEDS ORDERED: MEROPENEM 1GRAM 1 GM in SODIUM CHLORIDE 0.9% 100 ML 100 ML IV ONE (14:00)
[2018-09-15] MEDS ORDERED: MEROPENEM 1GM 100 ML IV ONE (14:15)
[2018-09-15] MEDS ORDERED: CEFTRIAXONE SOD 1 GM VIAL IM ONE (16:00)
== END 2018-09-15 16:38 | disposition home or self-care (01) ==
LOC: ER 10:47
DX: R30.0 Dysuria (principal); N30.00 Acute cystitis without hematuria; N18.9 Chronic kidney disease, unspecified; F03.90 Unspecified dementia, unspecified severity, without behavioral disturbance, psychotic disturbance, mood disturbance, and anxiety; I10 Essential (primary) hypertension; E11.9 Type 2 diabetes mellitus without complications; J44.9 Chronic obstructive pulmonary disease, unspecified
CPT/HCPCS: 36415; 80053; 81001; 85025; 87086; 87186; 99284; J0696; J2185; J7030

== ENCOUNTER 2019-04-30 14:14 | Inpatient (IN) | payer MEDICARE, OTHER ==
[~2019-04-30] VITALS: Ht 154.9 cm; Wt 81.6 kg
[~2019-04-30 14:14] MED LIST changes: +FAMOTIDINE 20 MG/2 ML VIAL IV ONE
[2019-04-30 15:08] LABS: BASOPHILS % 0.3 % (0.0-1.0); EOSINOPHILS % 0.2 % (0.0-6.0); HEMATOCRIT 31.9 % (34.2-44.1); HEMOGLOBIN 10.1 g/dL (12.0-16.0); LYMPHOCYTES # (AUTO) 0.7 (1.0-3.2); LYMPHOCYTES % 11.4 % (18.0-39.1); MEAN CORPUSCULAR HEMOGLOBIN 29.4 pg (28-32); MEAN CORPUSCULAR HGB CONC 31.7 g/dL (31-35); MONOCYTES # (AUTO) 0.7 (0.2-0.8); MONOCYTES % 10.3 % (4.4-11.3); NEUTROPHILS # (AUTO) 4.9 (2.1-6.9); NEUTROPHILS % 77.2 % (38.7-80.0); PLATELET COUNT 151 x10e3/uL (140-360); RED BLOOD COUNT 3.43 x10e6/uL (3.6-5.1); RED CELL DISTRIBUTION WIDTH 14.8 % (11.7-14.4)
[2019-04-30] MEDS ORDERED: METHYLPREDNISOLONE SOD SUCC 125 MG/2ML VIAL IV ONE (15:15)
[2019-04-30] MEDS ORDERED: SODIUM CHLORIDE 0.9% 1000ML 1,000 ML IV STA (15:17)
[2019-04-30] MEDS ORDERED: IPRATROPIUM BROMIDE 0.02% 2.5 ML NEB NEB STA (15:17)
[2019-04-30] MEDS ORDERED: ALBUTEROL SULF 0.083% NEB SOLN 3 ML NEB NEB STA (15:17)
[2019-04-30 15:18] LABS: INR 0.97; PROTHROMBIN TIME 13.4 seconds (11.9-14.5)
[2019-04-30 15:19] LABS: PARTIAL THROMBOPLASTIN TIME 23.1 seconds (23.8-35.5)
[2019-04-30 15:28] LABS: ALBUMIN 3.5 g/dL (3.5-5.0); ANION GAP 15.8 mmol/L (8-16); CALCIUM 8.6 mg/dL (8.4-10.2); CREATININE, SERUM 1.5 mg/dL (0.57-1.11); POTASSIUM 3.8 mmol/L (3.5-5.1)
[2019-04-30] MEDS ORDERED: DEXTROSE 50% SYRINGE 50 ML IV PRN (15:30)
[2019-04-30] MEDS ORDERED: DEXAMETHASONE SOD PHOS 10 MG/1 ML VIAL IV ONE (15:30)
[2019-04-30 15:36] LABS: ABG HCO3 27 mmol/L (23-28); ABG PCO2 40 mmHg (41-51); ABG PH 7.44 (7.31-7.41); ABG PO2 94 mmHg (80-105)
[2019-04-30 15:37] LABS: CREATINE KINASE MB 2.3 ng/mL (0-5.0)
[2019-04-30] MEDS ORDERED: PIPER-TAZ 3.375 GM 50 ML IV ONE (15:45)
[2019-04-30] MEDS ORDERED: FUROSEMIDE INJ 10 MG/ML 4 ML VIAL IV ONE (15:45)
[2019-04-30] MEDS ORDERED: LEVOFLOXACIN 500MG/D5W 100ML 100 ML IV ONE (16:00)
[2019-04-30] MEDS: LEVALBUTEROL HCL SOLN NEBU 1.25 MG/3 ML NEB INH SCH ×2 (16:00→19:00)
[2019-04-30] MEDS: METHYLPREDNISOLONE SOD SUCC 125 MG/2ML VIAL IV SCH ×2 (16:00→23:54)
[2019-04-30 16:13] LABS: BILIRUBIN,URINE NEGATIVE (NEGATIVE); CLARITY,URINE CLOUDY (CLEAR); COLOR,URINE YELLOW (YELLOW); KETONES,URINE NEGATIVE (NEGATIVE); LEUKOCYTE ESTERASE ,URINE LARGE (NEGATIVE); NITRITE,URINE NEGATIVE (NEGATIVE); PROTEIN,URINE DIPSTICK 1+ (NEGATIVE); URINE UROBILINOGEN 0.2 mg/dL (0.2 - 1)
[2019-04-30 16:26] LABS: BACTERIA,URINE MANY /HPF
[2019-04-30] MEDS: INSULIN REGULAR, HUMAN 100 UNIT/1 ML 3ML VIAL SQ SCH ×2 (16:44→21:39)
--- NOTE | 2019-04-30 16:47 | Diagnostic Imaging Report ---
EXAMINATION: CHEST SINGLE (PORTABLE) INDICATION: Shortness of breath COMPARISON: Chest radiograph of 05/05/2018 FINDINGS: LINES/TUBES:Left chest pacer unchanged. EKG leads overlie the chest. LUNGS:The lungs are well-inflated. There is perihilar fullness and indistinctness of the pulmonary vasculature. PLEURA:No pleural effusion or pneumothorax. MEDIASTINUM:Cardiomediastinal silhouette is stably enlarged. Atherosclerotic calcifications of the thoracic aorta. BONES/SOFT TISSUES:No acute osseous injury. ABDOMEN:No free air under the diaphragm. IMPRESSION: Cardiomegaly and pulmonary edema. Signed by: Whit Callahan MD on 04/30/2019 4:44 PM
[2019-04-30] MEDS: FAMOTIDINE 20 MG/2 ML VIAL IV SCH (17:00)
[2019-04-30 17:56] VITALS: BP 140/63
[2019-04-30 17:57] VITALS: BP 140/63
[2019-04-30 20:00] VITALS: BP 155/98
[2019-04-30 21:00] VITALS: BP 155/98
[2019-04-30] MEDS: PIPER-TAZ 3.375 GM 50 ML IV SCH (21:37)
[2019-04-30] MEDS: CLONIDINE HCL 0.2 MG TAB PO SCH (21:37)
[2019-04-30] MEDS: APIXAB 2.5 MG TABLET PO SCH (21:37)
[2019-04-30] MEDS: POTASSIUM CHLORIDE 20 MEQ TAB CR PO SCH (21:38)
[2019-04-30] MEDS: MONTELUKAST SODIUM 10 MG TAB PO SCH (21:38)
[2019-04-30] MEDS: ATORVASTATIN 10 MG TAB PO SCH (21:38)
[2019-04-30] MEDS: HYDRALAZINE HCL 100 MG TABLET PO SCH (21:38)
[2019-04-30] MEDS: INSULIN GLARGINE 100 UNITS/ML VIAL SQ SCH (21:44)
[2019-04-30 23:53] LABS: CREATINE KINASE MB 1.9 ng/mL (0-5.0)
[2019-05-01] VITALS (8 sets, daily range): BP systolic 115–155; BP diastolic 51–64
[2019-05-01] MEDS: LEVALBUTEROL HCL SOLN NEBU 1.25 MG/3 ML NEB INH SCH ×5 (01:00→23:50)
[2019-05-01] MEDS: PIPER-TAZ 3.375 GM 50 ML IV SCH ×4 (04:32→21:00)
[2019-05-01 05:14] LABS: HEMATOCRIT 29.3 % (34.2-44.1); LYMPHOCYTES # (AUTO) 0.4 (1.0-3.2); LYMPHOCYTES % 13.1 % (18.0-39.1); MEAN CORPUSCULAR HEMOGLOBIN 28.6 pg (28-32); MEAN CORPUSCULAR HGB CONC 30.7 g/dL (31-35); MONOCYTES # (AUTO) 0.1 (0.2-0.8); MONOCYTES % 2.4 % (4.4-11.3); NEUTROPHILS # (AUTO) 2.8 (2.1-6.9); NEUTROPHILS % 83.6 % (38.7-80.0); PLATELET COUNT 154 x10e3/uL (140-360); RED BLOOD COUNT 3.15 x10e6/uL (3.6-5.1); RED CELL DISTRIBUTION WIDTH 14.6 % (11.7-14.4)
[2019-05-01 05:23] LABS: INR 1.02; PROTHROMBIN TIME 13.9 seconds (11.9-14.5)
[2019-05-01 05:24] LABS: PARTIAL THROMBOPLASTIN TIME 27.3 seconds (23.8-35.5)
[2019-05-01] MEDS: LEVOTHYROXINE SODIUM 75 MCG TAB PO SCH (05:31)
[2019-05-01 05:51] LABS: CREATINE KINASE MB 1.8 ng/mL (0-5.0)
[2019-05-01 06:08] LABS: ANION GAP 15.1 mmol/L (8-16); CREATININE, SERUM 1.53 mg/dL (0.57-1.11); MAGNESIUM 2.1 MG/DL (1.3-2.1); PHOSPHORUS 4.3 MG/DL (2.3-4.7); POTASSIUM 4.1 mmol/L (3.5-5.1)
[2019-05-01] MEDS ORDERED: IBANDRONATE SODIUM 150 MG PO SCH (06:30)
[2019-05-01] MEDS: IPRATROPIUM BROMIDE 0.02% 2.5 ML NEB NEB PRN (06:50)
[2019-05-01] MEDS: INSULIN REGULAR, HUMAN 100 UNIT/1 ML 3ML VIAL SQ SCH ×4 (07:30→21:00)
[2019-05-01] MEDS: FAMOTIDINE 20 MG/2 ML VIAL IV SCH ×2 (08:41→16:51)
[2019-05-01] MEDS: NITROFURANTOIN MACROCRYSTALS 100 MG CAP PO SCH ×2 (08:41→16:52)
[2019-05-01] MEDS: CLONIDINE HCL 0.2 MG TAB PO SCH (08:42)
[2019-05-01] MEDS: APIXAB 2.5 MG TABLET PO SCH (08:42)
[2019-05-01] MEDS: HYDRALAZINE HCL 100 MG TABLET PO SCH ×3 (08:42→21:00)
[2019-05-01] MEDS: FUROSEMIDE 40 MG TAB PO SCH ×2 (08:42→16:52)
[2019-05-01] MEDS: PANTOPRAZOLE SOD 40 MG TABEC PO SCH (08:42)
[2019-05-01] MEDS ORDERED: ISOSORBIDE MONONITRATE 30 MG TAB CR PO SCH (09:00)
[2019-05-01] MEDS ORDERED: GABAPENTIN 100 MG CAP PO SCH (09:00)
[2019-05-01] MEDS ORDERED: ALLOPURINOL 100 MG TAB PO SCH (09:00)
[2019-05-01] MEDS ORDERED: AMLODIPINE BESYLATE 5 MG TAB PO SCH (09:00)
[2019-05-01] MEDS: METHYLPREDNISOLONE SOD SUCC 125 MG/2ML VIAL IV SCH ×2 (09:31→16:51)
[2019-05-01] MEDS ORDERED: CARVEDILOL3.125 MG PO (11:11)
[2019-05-01] MEDS ORDERED: ARICEPT5 MG PO (11:11)
[2019-05-01] MEDS: CARVEDILOL 3.125 MG TAB PO SCH (16:52)
[2019-05-01] MEDS: DOCUSATE SODIUM 100 MG CAP PO SCH (16:52)
[2019-05-01] MEDS: GABAPENTIN 100 MG CAP PO SCH (21:00)
[2019-05-01] MEDS: MONTELUKAST SODIUM 10 MG TAB PO SCH (21:00)
[2019-05-01] MEDS: POTASSIUM CHLORIDE 20 MEQ TAB CR PO SCH (21:00)
[2019-05-01] MEDS: DONEPEZIL HCL 5 MG TAB PO SCH (21:00)
[2019-05-01] MEDS: ATORVASTATIN 10 MG TAB PO SCH (21:00)
[2019-05-01] MEDS: INSULIN GLARGINE 100 UNITS/ML VIAL SQ SCH (21:42)
[2019-05-02] VITALS (9 sets, daily range): BP systolic 136–145; BP diastolic 54–99
[2019-05-02] MEDS: METHYLPREDNISOLONE SOD SUCC 40 MG/ML VIAL 1ML IV SCH ×4 (00:15→23:34)
--- NOTE | 2019-05-02 03:19 | Consultation ---
DATE OF CONSULTATION: Pulmonary Consultation. REASON FOR CONSULT: Shortness of breath. HISTORY OF PRESENT ILLNESS: Ms. García is an 84-year-old female, she presented to the emergency room with complaints of shortness of breath. She reports that the shortness of breath started a couple of days ago, progressively getting worse and there was no improvement. She was using oxygen at home. She also had a cough along with it. She denies any nausea, or vomiting. Per the EMS, the patient's family called stating that the patient had multiple falls today and EMS reported strong smell of urine in the house and family stating that they think the patient had a UTI. She was short of breath and wheezing, on BiPAP upon arrival. She told me she is hard of hearing, and she is telling me that she is breathing better now. According to the daughter, she accumulated a lot of fluid. The patient was here in September of 2018 and was seen by Dr. Shields at that time. His note suggest that the patient has history of multiple UTIs. REVIEW OF SYSTEMS: GENERAL: Denies any fever or chills. HEAD: Denies any head trauma. ENT: Denies any earache. CVS: Denies any chest pain. RESPIRATORY: Shortness of breath. GI: Denies any nausea or vomiting. The rest of the review of systems is negative except as in HPI. PAST MEDICAL HISTORY: Hypertension, coronary artery disease, hyperlipidemia, hypothyroidism, history of recurrent UTIs , also has a history of gout. PAST SURGICAL HISTORY: Hysterectomy, pacemaker placement, and AICD placement. SOCIAL HISTORY: Daughter is primary home care scheduler. She has never smoked per the daughter. She has a history of congestive heart failure per the old record. The echocardiogram was done, but the report is pending. PHYSICAL EXAMINATION: VITAL SIGNS: Temperature 98.0, pulse of 64, blood pressure 122/57, respiratory rate is 18 to 20, and O2 saturation 98% on 2 L. HEENT: Head is atraumatic and normocephalic. NECK: Supple. CHEST: Occasional wheezing. Otherwise, reduced air entry on the bases. HEART: S1, S2 audible. ABDOMEN: Soft, nontender. EXTREMITIES: Pedal edema. NEUROLOGIC: Awake and alert. Hard of hearing. LABORATORY DATA: White count of 3000, hemoglobin 9.0, platelets 154. Chemistry; sodium 138, potassium 4.1, chloride 99, BUN 41, creatinine 1.53. BNP was 337.8. Creatinine, the patient has chronic kidney disease and creatinine is near baseline. Chest x-ray was done, which is showing evidence of increased congestion and pulmonary edema. ASSESSMENT: Ms. García is an 84-year-old female came in with shortness of breath. The patient has never smoked, has occasional wheezing, now better. Agree with the plan. PROBLEMS: 1. Acute on chronic congestive heart failure. Echocardiogram is pending. 2. Possibility of obstructive asthma versus COPD. The patient denies any history of smoking. 3. Hypertension. 4. Hypothyroidism. 5. Bed-bound status. 6. UTI. The patient's urine culture is growing gram-negative rods. PLAN: 1. Continue the patient on nebulizer treatment as ordered. I will reduce the dose of steroids to 20 mg IV q.8 hourly. She is on 60 q.8 hourly right now. Continue the patient on nebulizer treatment. 2. Oxygen as needed to keep the O2 saturation more than or equal to 92%. 3. Continue p.o. Lasix 80 mg b.i.d. The patient has chronic kidney disease and creatinine is near baseline. 4. We will follow the echocardiogram results. Discussed with the patient's daughter at bedside in detail. 5. 6. Thank you for this consult. MD MEI Jay/LEVON /[id number]
[2019-05-02] MEDS: PIPER-TAZ 3.375 GM 50 ML IV SCH ×2 (03:38→08:27)
[2019-05-02] MEDS: LEVOTHYROXINE SODIUM 75 MCG TAB PO SCH (05:16)
[2019-05-02] MEDS: LEVALBUTEROL HCL SOLN NEBU 1.25 MG/3 ML NEB INH SCH ×3 (07:30→19:37)
[2019-05-02] MEDS: INSULIN REGULAR, HUMAN 100 UNIT/1 ML 3ML VIAL SQ SCH ×4 (07:30→21:00)
[2019-05-02] MEDS: NITROFURANTOIN MACROCRYSTALS 100 MG CAP PO SCH ×2 (08:27→17:05)
[2019-05-02] MEDS: FAMOTIDINE 20 MG/2 ML VIAL IV SCH (08:27)
[2019-05-02] MEDS: FUROSEMIDE 40 MG TAB PO SCH ×2 (08:28→17:05)
[2019-05-02] MEDS: GABAPENTIN 100 MG CAP PO SCH ×3 (08:28→21:00)
[2019-05-02] MEDS: CARVEDILOL 3.125 MG TAB PO SCH ×2 (08:28→17:05)
[2019-05-02] MEDS: HYDRALAZINE HCL 100 MG TABLET PO SCH ×3 (08:28→21:00)
[2019-05-02] MEDS: FERROUS SULFATE 325 MG TAB PO SCH (08:28)
[2019-05-02] MEDS: PANTOPRAZOLE SOD 40 MG TABEC PO SCH (08:28)
[2019-05-02] MEDS: DOCUSATE SODIUM 100 MG CAP PO SCH ×2 (08:29→17:05)
[2019-05-02] MEDS ORDERED: ACETAMINOPHEN 325 MG TAB PO PRN (09:45)
--- NOTE | 2019-05-02 12:00 | NUR ---
PATIENT REFUSING INSULIN INJECTION. Addendum: 05/02/19 at 1503 by Anna Macedo RN PATIENT'S DAUGHTER BROUGHT PATIENT HER SWEETS FROM [employer]
--- NOTE | 2019-05-02 14:34 | NUR ---
PAGED DR MEYER REGARDING URINE CULTURE SENSITIVITY AND RECOMMENDATION FROM PHYSICAL THERAPY FOR SNF EVAL Addendum: 05/02/19 at 1448 by Anna Macedo RN NEW ORDERS RECEIVED
[2019-05-02] MEDS ORDERED: CEFTRIAXONE SOD 1 GM/NS 50 ML 50 ML IV SCH (14:45)
--- NOTE | 2019-05-02 16:01 | NUR ---
PT FAMILY S[facility] TO [phone] SPOKE WITH REP PABLO KNOW TOMORROW WILL BE 3RD MIDNIGHT. COMPLETED RTF AND PUT WITH PACKET FOR COMPLETION FOR TRANSFER.
[2019-05-02] MEDS: INSULIN GLARGINE 100 UNITS/ML VIAL SQ SCH (21:00)
[2019-05-02] MEDS: POTASSIUM CHLORIDE 20 MEQ TAB CR PO SCH (21:00)
[2019-05-02] MEDS: DONEPEZIL HCL 5 MG TAB PO SCH (21:00)
[2019-05-02] MEDS: ATORVASTATIN 10 MG TAB PO SCH (21:00)
[2019-05-02] MEDS: MONTELUKAST SODIUM 10 MG TAB PO SCH (21:00)
[2019-05-03] VITALS: BP 144/98
[2019-05-03] MEDS: LEVALBUTEROL HCL SOLN NEBU 1.25 MG/3 ML NEB INH SCH ×3 (01:07→13:10)
[2019-05-03 04:00] VITALS: BP 166/72
[2019-05-03] MEDS: LEVOTHYROXINE SODIUM 75 MCG TAB PO SCH (05:01)
[2019-05-03 05:18] LABS: HEMATOCRIT 29.9 % (34.2-44.1); HEMOGLOBIN 9.4 g/dL (12.0-16.0); LYMPHOCYTES # (AUTO) 0.5 (1.0-3.2); LYMPHOCYTES % 6.5 % (18.0-39.1); MEAN CORPUSCULAR HGB CONC 31.4 g/dL (31-35); MEAN CORPUSCULAR VOLUME 92.3 fL (81-99); MONOCYTES # (AUTO) 0.4 (0.2-0.8); MONOCYTES % 4.7 % (4.4-11.3); NEUTROPHILS # (AUTO) 7.2 (2.1-6.9); NEUTROPHILS % 88.1 % (38.7-80.0); PLATELET COUNT 155 x10e3/uL (140-360); RED BLOOD COUNT 3.24 x10e6/uL (3.6-5.1); RED CELL DISTRIBUTION WIDTH 14.3 % (11.7-14.4)
[2019-05-03 05:35] LABS: ALBUMIN 2.8 g/dL (3.5-5.0); ALBUMIN/GLOBULIN RATIO 0.9 (0.8-2.0); ANION GAP 17.4 mmol/L (8-16); CALCIUM 7.3 mg/dL (8.4-10.2); MAGNESIUM 2.1 MG/DL (1.3-2.1); POTASSIUM 3.4 mmol/L (3.5-5.1)
[2019-05-03 05:39] LABS: CREATININE, SERUM 2.45 mg/dL (0.57-1.11)
[2019-05-03] MEDS: IPRATROPIUM BROMIDE 0.02% 2.5 ML NEB NEB PRN (07:20)
[2019-05-03 07:21] LABS: LYMPHOCYTES % (MANUAL) 8 % (19-48); MONOCYTES % (MANUAL) 4 % (3.4-9.0); NEUTROPHILS % (MANUAL) 88 % (40-74)
[2019-05-03 07:26] LABS: HYPOCHROMASIA SLIGHT; POIKILOCYTOSIS SLIGHT
[2019-05-03 07:27] LABS: HELMET CELLS RARE; PLATELET ESTIMATE ADEQUATE; PLATELET MORPHOLOGY COMMENT FEW LARGE; RBC MORPHOLOGY COMMENT ABNORMAL
[2019-05-03] MEDS: INSULIN REGULAR, HUMAN 100 UNIT/1 ML 3ML VIAL SQ SCH ×2 (07:30→12:41)
[2019-05-03 08:00] VITALS: BP 162/66
[2019-05-03] MEDS: NITROFURANTOIN MACROCRYSTALS 100 MG CAP PO SCH (09:21)
[2019-05-03] MEDS: METHYLPREDNISOLONE SOD SUCC 40 MG/ML VIAL 1ML IV SCH (09:21)
[2019-05-03] MEDS: DOCUSATE SODIUM 100 MG CAP PO SCH (09:22)
[2019-05-03] MEDS: CARVEDILOL 3.125 MG TAB PO SCH (09:23)
[2019-05-03] MEDS: FUROSEMIDE 40 MG TAB PO SCH (09:23)
[2019-05-03] MEDS: FERROUS SULFATE 325 MG TAB PO SCH (09:23)
[2019-05-03] MEDS: GABAPENTIN 100 MG CAP PO SCH (09:23)
[2019-05-03] MEDS: HYDRALAZINE HCL 100 MG TABLET PO SCH (09:23)
[2019-05-03] MEDS: PANTOPRAZOLE SOD 40 MG TABEC PO SCH (09:23)
--- NOTE | 2019-05-03 10:30 | NUR ---
HALF-WAY FACILITY DISCHARGE INFORMATION PATIENT HAS BEEN ACCEPTED TO: NAME: [facility] ADDRESS: [id number] ACCEPTING [employer] FLIGHT ENGINEER: MICHELLE EMERY MD: ARIELLA ROOM: 121 NURSE CALL REPORT TO: [phone]
--- NOTE | 2019-05-03 10:41 | NUR ---
Bun/ creat = 64/ 2.45. Dr Corona notified and Dr Abdullahi notified. Lasix dose was decreased.
[2019-05-03 12:00] VITALS: BP 148/56
--- NOTE | 2019-05-03 12:00 | NUR ---
IMM explained to patient, patient signed, copy given to patient, original placed in chart
--- NOTE | 2019-05-03 13:50 | NUR ---
Pt has left with [facility] wheelchair transport. Daughters with patient. No complications noted.
[2019-05-03] MEDS ORDERED: FUROSEMIDE 40 MG TAB PO SCH (17:00)
== END 2019-05-03 13:56 | DRG 190 ==
LOC: ER 14:14 → ERHOLD 16:09 → IMCU 17:23
PROVIDERS: ADMIT Internal Medicine; ATTEND Internal Medicine
DX: J44.1 Chronic obstructive pulmonary disease with (acute) exacerbation (principal); J96.01 Acute respiratory failure with hypoxia; N39.0 Urinary tract infection, site not specified; I13.0 Hypertensive heart and chronic kidney disease with heart failure and stage 1 through stage 4 chronic kidney disease, or unspecified chronic kidney disease; E66.9 Obesity, unspecified; Z68.30 Body mass index [BMI] 30.0-30.9, adult; Z95.0 Presence of cardiac pacemaker; Z83.3 Family history of diabetes mellitus; Z82.49 Family history of ischemic heart disease and other diseases of the circulatory system; E11.22 Type 2 diabetes mellitus with diabetic chronic kidney disease; N18.3 Chronic kidney disease, stage 3 (moderate); D64.9 Anemia, unspecified; E03.9 Hypothyroidism, unspecified; E78.5 Hyperlipidemia, unspecified; Z74.01 Bed confinement status; I50.9 Heart failure, unspecified; M10.9 Gout, unspecified; R53.81 Other malaise
CPT/HCPCS: 36415; 36600; 51700; 71045; 80048; 80053; 81001; 82550; 82553; 82805; 82948; 83605; 83735; 83880; 84100; 84484; 85025; 85610; 85730; 87040; 87086; 87186; 87400; 93005; 93306; 94640; 94660; 97139; 99284; J0696; J1100; J1815; J1940; J1956; J2543; J2920; J2930

== ENCOUNTER → 2020-03-03 | Day surgery (SDC) | payer MEDICARE, OTHER ==
[2020-02-27 12:40] LABS: BASOPHILS # (AUTO) 0.1 (0.0-0.1); BASOPHILS % 0.8 % (0.0-1.0); EOSINOPHILS # (AUTO) 0.2 (0.0-0.4); EOSINOPHILS % 2.7 % (0.0-6.0); HEMATOCRIT 32.6 % (34.2-44.1); HEMOGLOBIN 10.3 g/dL (12.0-16.0); LYMPHOCYTES # (AUTO) 2.3 (1.0-3.2); LYMPHOCYTES % 27.1 % (18.0-39.1); MEAN CORPUSCULAR HGB CONC 31.6 g/dL (31-35); MEAN CORPUSCULAR VOLUME 91.8 fL (81-99); MONOCYTES # (AUTO) 0.8 (0.2-0.8); MONOCYTES % 9.5 % (4.4-11.3); NEUTROPHILS % 59.5 % (38.7-80.0); PLATELET COUNT 173 x10e3/uL (140-360); RED BLOOD COUNT 3.55 x10e6/uL (3.6-5.1); RED CELL DISTRIBUTION WIDTH 15.5 % (11.7-14.4)
[2020-02-27 12:56] LABS: INR 1.07; PROTHROMBIN TIME 14.5 seconds (11.9-14.5)
[2020-02-27 13:04] LABS: ALBUMIN/GLOBULIN RATIO 1.3 (0.8-2.0); CALCIUM 8.8 mg/dL (8.4-10.2); CREATININE, SERUM 1.99 mg/dL (0.57-1.11)
[~2020-03-03] VITALS: Ht 157.5 cm; Wt 79.8 kg
[~2020-03-03] MED LIST changes: +ARICEPT5 MG PO; +BENZOCAINE 20% SPR 60 ML CAN ONE; +CARVEDILOL3.125 MG PO; +ELIQUIS2.5 MG PO; -FAMOTIDINE 20 MG/2 ML VIAL IV ONE; +FERROUS SULFAT325 MG PO; +ISOSORBIDE DINI30 MG PO; +LIDOCAINE HCL 2% LOCAL INJ 5 ML SDV VIAL INJ ONE; +PROPOFOL IV EMULSION 10 MG/ML 20 ML VIAL ONE; +SODIUM CHLORIDE 0.9% 1000ML 1,000 ML ONE
[2020-03-03 11:15] VITALS: BP 164/60
== END | disposition home or self-care (01) ==
LOC: CATH LAB 09:13
PROVIDERS: ATTEND Internal Medicine Interventional Cardiology
DX: I48.91 Unspecified atrial fibrillation (principal); Z01.812 Encounter for preprocedural laboratory examination; Z11.59 Encounter for screening for other viral diseases; Z88.1 Allergy status to other antibiotic agents; Z95.818 Presence of other cardiac implants and grafts
CPT/HCPCS: 36415 ×2; 80053; 82948; 85025; 85610; 93312; 93320; 93325; J2001; J2704; J7030; U0002; 93307

== ENCOUNTER 2020-11-05 15:31 | Inpatient (IN) | payer MEDICARE, OTHER ==
[~2020-11-05] VITALS: Ht 157.5 cm; Wt 79.8 kg
[~2020-11-05 15:31] MED LIST changes: -BENZOCAINE 20% SPR 60 ML CAN ONE; -LIDOCAINE HCL 2% LOCAL INJ 5 ML SDV VIAL INJ ONE; -PROPOFOL IV EMULSION 10 MG/ML 20 ML VIAL ONE; -SODIUM CHLORIDE 0.9% 1000ML 1,000 ML ONE
[2020-11-05 16:20] LABS: BASOPHILS # (AUTO) 0.1 (0.0-0.1); BASOPHILS % 0.3 % (0.0-1.0); EOSINOPHILS % 0.1 % (0.0-6.0); HEMATOCRIT 29.1 % (34.2-44.1); HEMOGLOBIN 9.2 g/dL (12.0-16.0); LYMPHOCYTES # (AUTO) 0.4 (1.0-3.2); LYMPHOCYTES % 1.9 % (18.0-39.1); MEAN CORPUSCULAR HEMOGLOBIN 28.9 pg (28-32); MEAN CORPUSCULAR HGB CONC 31.6 g/dL (31-35); MEAN CORPUSCULAR VOLUME 91.5 fL (81-99); MONOCYTES # (AUTO) 0.3 (0.2-0.8); MONOCYTES % 1.4 % (4.4-11.3); NEUTROPHILS # (AUTO) 17.9 (2.1-6.9); NEUTROPHILS % 95.7 % (38.7-80.0); PLATELET COUNT 202 x10e3/uL (140-360); RED BLOOD COUNT 3.18 x10e6/uL (3.6-5.1); RED CELL DISTRIBUTION WIDTH 15.6 % (11.7-14.4)
[2020-11-05 16:22] LABS: COLOR,URINE YELLOW (YELLOW)
[2020-11-05 16:23] LABS: CLARITY,URINE SL CLOUDY (CLEAR); KETONES,URINE NEGATIVE (NEGATIVE); LEUKOCYTE ESTERASE ,URINE SMALL (NEGATIVE); NITRITE,URINE NEGATIVE (NEGATIVE); PROTEIN,URINE DIPSTICK NEGATIVE (NEGATIVE); URINE UROBILINOGEN 0.2 mg/dL (0.2 - 1)
[2020-11-05 16:35] LABS: BACTERIA,URINE MANY /HPF
[2020-11-05 16:38] LABS: ALBUMIN 3.6 g/dL (3.5-5.0); ALBUMIN/GLOBULIN RATIO 1.1 (0.8-2.0); ANION GAP 16.3 mmol/L (8-16); CALCIUM 9.3 mg/dL (8.4-10.2); CREATININE, SERUM 2.02 mg/dL (0.57-1.11); POTASSIUM 3.3 mmol/L (3.5-5.1)
[2020-11-05 16:47] LABS: B-TYPE NATRIURETIC PEPTIDE2 393.8 pg/mL (0-100)
[2020-11-05] MEDS ORDERED: PIPERACILLIN/TAZO 4.5 GM 100 ML IV STA (16:54)
[2020-11-05] MEDS ORDERED: ONDANSETRON HCL INJ 2MG/ML 2ML 2 MG/ML VIAL IV PRN (17:15)
[2020-11-05 21:25] VITALS: BP 155/60
[2020-11-05 21:58] VITALS: BP 155/60
[2020-11-06] VITALS (8 sets, daily range): BP systolic 120–155; BP diastolic 60–92
[2020-11-06 06:20] LABS: BASOPHILS # (AUTO) 0.1 (0.0-0.1); BASOPHILS % 0.3 % (0.0-1.0); HEMATOCRIT 27.6 % (34.2-44.1); LYMPHOCYTES # (AUTO) 0.4 (1.0-3.2); LYMPHOCYTES % 1.7 % (18.0-39.1); MEAN CORPUSCULAR HEMOGLOBIN 29.2 pg (28-32); MEAN CORPUSCULAR HGB CONC 32.6 g/dL (31-35); MEAN CORPUSCULAR VOLUME 89.6 fL (81-99); MONOCYTES # (AUTO) 0.5 (0.2-0.8); MONOCYTES % 2.1 % (4.4-11.3); NEUTROPHILS # (AUTO) 23.2 (2.1-6.9); NEUTROPHILS % 94.9 % (38.7-80.0); PLATELET COUNT 184 x10e3/uL (140-360); RED BLOOD COUNT 3.08 x10e6/uL (3.6-5.1); RED CELL DISTRIBUTION WIDTH 15.6 % (11.7-14.4)
[2020-11-06 06:33] LABS: ANION GAP 17.2 mmol/L (8-16); CREATININE, SERUM 2.08 mg/dL (0.57-1.11); POTASSIUM 3.2 mmol/L (3.5-5.1)
[2020-11-06 10:12] LABS: BAND NEUTROPHILS % (MANUAL) 5 %; LYMPHOCYTES % (MANUAL) 2 % (19-48); METAMYELOCYTES % (MANUAL) 1 % (0-0); MONOCYTES % (MANUAL) 1 % (3.4-9.0); NEUTROPHILS % (MANUAL) 91 % (40-74)
[2020-11-06] MEDS ORDERED: ACETAMINOPHEN 325 MG TAB PO PRN (11:30)
[2020-11-06] MEDS ORDERED: HYDRALAZINE HCL 20 MG/ML VIAL IV PRN (11:30)
[2020-11-06] MEDS ORDERED: POLYETHYLENE GLYCOL 3350 17 GM PACK PO PRN (11:30)
[2020-11-06] MEDS ORDERED: KCL 20MEQ/.9 SOD CHL 1,000 ML IV SCH (12:00)
[2020-11-06] MEDS ORDERED: ONDANSETRON HCL 4 MG ORAL DISINTEGRATING TAB PO PRN (13:15)
[2020-11-06] MEDS: SODIUM CHLORIDE 0.9% 1000ML 1,000 ML IV SCH ×2 (13:30→20:06)
[2020-11-06] MEDS: HYDRALAZINE HCL 100 MG TABLET PO SCH ×2 (15:16→20:06)
[2020-11-06] MEDS: DOCUSATE SODIUM 100 MG CAP PO SCH (15:17)
[2020-11-06] MEDS: FAMOTIDINE 20 MG TAB PO SCH (15:17)
[2020-11-06] MEDS: CARVEDILOL 3.125 MG TAB PO SCH (15:18)
[2020-11-06] MEDS: FERROUS SULFATE 325 MG TAB PO SCH (15:18)
[2020-11-06] MEDS: ALLOPURINOL 100 MG TAB PO SCH (15:19)
[2020-11-06] MEDS: ISOSORBIDE DINITRATE 20 MG TAB PO SCH (15:19)
[2020-11-06] MEDS ORDERED: FUROSEMIDE INJ 10 MG/ML 4 ML VIAL ONE (15:32)
[2020-11-06] MEDS: FUROSEMIDE INJ 10 MG/ML 4 ML VIAL IV SCH (15:45)
[2020-11-06] MEDS: ALBUTEROL/IPRATROPIUM 3 ML NEB NEB PRN (19:00)
[2020-11-06] MEDS: DONEPEZIL HCL 5 MG TAB PO SCH (20:05)
[2020-11-06] MEDS: MEROPENEM 1GM 100 ML IV SCH (20:05)
[2020-11-06] MEDS: ATORVASTATIN 10 MG TAB PO SCH (20:06)
[2020-11-06] MEDS ORDERED: CEFEPIME HCL 1 GM VIAL IV SCH (21:00)
[2020-11-06] MEDS: MORPHINE SULFATE INJ 4 MG/ML INJ 1ML IV PRN (23:21)
[2020-11-06] MEDS: MONTELUKAST SODIUM 10 MG TAB PO SCH (23:23)
[2020-11-07] VITALS (8 sets, daily range): BP systolic 118–146; BP diastolic 49–69
[2020-11-07] MEDS: ALBUTEROL/IPRATROPIUM 3 ML NEB NEB PRN ×2 (01:05→15:05)
[2020-11-07] MEDS: MORPHINE SULFATE INJ 4 MG/ML INJ 1ML IV PRN (03:36)
[2020-11-07 04:52] LABS: BASOPHILS % 0.3 % (0.0-1.0); EOSINOPHILS % 0.1 % (0.0-6.0); HEMATOCRIT 26.7 % (34.2-44.1); HEMOGLOBIN 8.6 g/dL (12.0-16.0); LYMPHOCYTES # (AUTO) 0.7 (1.0-3.2); LYMPHOCYTES % 5.8 % (18.0-39.1); MEAN CORPUSCULAR HEMOGLOBIN 28.8 pg (28-32); MEAN CORPUSCULAR HGB CONC 32.2 g/dL (31-35); MEAN CORPUSCULAR VOLUME 89.3 fL (81-99); MONOCYTES # (AUTO) 0.4 (0.2-0.8); MONOCYTES % 3.6 % (4.4-11.3); NEUTROPHILS # (AUTO) 10.9 (2.1-6.9); NEUTROPHILS % 89.2 % (38.7-80.0); PLATELET COUNT 148 x10e3/uL (140-360); RED BLOOD COUNT 2.99 x10e6/uL (3.6-5.1); RED CELL DISTRIBUTION WIDTH 15.4 % (11.7-14.4)
[2020-11-07 05:15] LABS: ALBUMIN 2.8 g/dL (3.5-5.0); ALBUMIN/GLOBULIN RATIO 0.8 (0.8-2.0); ANION GAP 18.9 mmol/L (8-16); CALCIUM 8.5 mg/dL (8.4-10.2); CREATININE, SERUM 2.14 mg/dL (0.57-1.11); MAGNESIUM 2.1 MG/DL (1.3-2.1); PHOSPHORUS 4.5 MG/DL (2.3-4.7)
[2020-11-07 05:18] LABS: POTASSIUM 2.9 mmol/L (3.5-5.1)
[2020-11-07] MEDS ORDERED: POTASSIUM CHLORIDE 20 MEQ TAB CR PO STA (05:21)
[2020-11-07 05:29] LABS: THYROID STIMULATING HORMONE 1.311 uIU/mL (0.350-4.940)
[2020-11-07] MEDS: LEVOTHYROXINE SODIUM 75 MCG TAB PO SCH (05:38)
[2020-11-07] MEDS: FUROSEMIDE INJ 10 MG/ML 4 ML VIAL IV SCH ×2 (05:38→17:25)
[2020-11-07] MEDS: SODIUM CHLORIDE 0.9% 1000ML 1,000 ML IV SCH ×2 (06:09→20:42)
[2020-11-07] MEDS: FAMOTIDINE 20 MG TAB PO SCH ×2 (07:56→15:26)
[2020-11-07] MEDS ORDERED: NON-FORMULARY MEDICATION (Isosorbide Dinitrate 30 MG) PO SCH (09:00)
[2020-11-07] MEDS ORDERED: CEFEPIME HCL 1 GM VIAL IV SCH (09:00)
[2020-11-07] MEDS: DOCUSATE SODIUM 100 MG CAP PO SCH ×2 (11:37→16:48)
[2020-11-07] MEDS: CARVEDILOL 3.125 MG TAB PO SCH ×2 (11:38→16:48)
[2020-11-07] MEDS: HYDRALAZINE HCL 100 MG TABLET PO SCH ×3 (11:38→20:42)
[2020-11-07] MEDS: ATORVASTATIN 10 MG TAB PO SCH (20:42)
[2020-11-07] MEDS: MONTELUKAST SODIUM 10 MG TAB PO SCH (20:42)
[2020-11-07] MEDS: DONEPEZIL HCL 5 MG TAB PO SCH (20:42)
[2020-11-07] MEDS: MEROPENEM 1GM 100 ML IV SCH (20:42)
[2020-11-07] MEDS: TEMAZEPAM 15 MG CAP PO PRN (22:03)
[2020-11-08] VITALS (8 sets, daily range): BP systolic 106–142; BP diastolic 53–73
[2020-11-08] MEDS: SODIUM CHLORIDE 0.9% 1000ML 1,000 ML IV SCH ×2 (05:30→15:14)
[2020-11-08] MEDS: FUROSEMIDE INJ 10 MG/ML 4 ML VIAL IV SCH ×2 (06:08→18:00)
[2020-11-08] MEDS: LEVOTHYROXINE SODIUM 75 MCG TAB PO SCH (06:08)
[2020-11-08 06:41] LABS: BASOPHILS % 0.4 % (0.0-1.0); EOSINOPHILS # (AUTO) 0.2 (0.0-0.4); EOSINOPHILS % 2.3 % (0.0-6.0); HEMATOCRIT 26.2 % (34.2-44.1); HEMOGLOBIN 8.4 g/dL (12.0-16.0); LYMPHOCYTES # (AUTO) 0.8 (1.0-3.2); LYMPHOCYTES % 9.6 % (18.0-39.1); MEAN CORPUSCULAR HEMOGLOBIN 28.7 pg (28-32); MEAN CORPUSCULAR HGB CONC 32.1 g/dL (31-35); MEAN CORPUSCULAR VOLUME 89.4 fL (81-99); MONOCYTES # (AUTO) 0.6 (0.2-0.8); MONOCYTES % 7.2 % (4.4-11.3); NEUTROPHILS # (AUTO) 6.2 (2.1-6.9); NEUTROPHILS % 79.1 % (38.7-80.0); PLATELET COUNT 121 x10e3/uL (140-360); RED BLOOD COUNT 2.93 x10e6/uL (3.6-5.1); RED CELL DISTRIBUTION WIDTH 15.4 % (11.7-14.4)
[2020-11-08 07:10] LABS: ANION GAP 19.4 mmol/L (8-16); CALCIUM 7.7 mg/dL (8.4-10.2); CREATININE, SERUM 2.13 mg/dL (0.57-1.11); POTASSIUM 3.4 mmol/L (3.5-5.1)
[2020-11-08] MEDS: ALBUTEROL/IPRATROPIUM 3 ML NEB NEB PRN (07:10)
[2020-11-08] MEDS: FAMOTIDINE 20 MG TAB PO SCH ×2 (07:30→16:47)
[2020-11-08] MEDS: DOCUSATE SODIUM 100 MG CAP PO SCH ×2 (09:00→16:47)
[2020-11-08] MEDS: ISOSORBIDE DINITRATE 20 MG TAB PO SCH (09:00)
[2020-11-08] MEDS: ALLOPURINOL 100 MG TAB PO SCH (09:00)
[2020-11-08] MEDS: HYDRALAZINE HCL 100 MG TABLET PO SCH ×3 (09:00→20:41)
[2020-11-08] MEDS: CARVEDILOL 3.125 MG TAB PO SCH ×2 (09:00→16:49)
[2020-11-08] MEDS: FERROUS SULFATE 325 MG TAB PO SCH (09:00)
[2020-11-08] MEDS: MORPHINE SULFATE INJ 4 MG/ML INJ 1ML IV PRN (15:52)
[2020-11-08 18:03] LABS: CLARITY,URINE CLEAR (CLEAR); COLOR,URINE YELLOW (YELLOW)
[2020-11-08 18:04] LABS: KETONES,URINE NEGATIVE (NEGATIVE); LEUKOCYTE ESTERASE ,URINE TRACE (NEGATIVE); NITRITE,URINE NEGATIVE (NEGATIVE); PROTEIN,URINE DIPSTICK 1+ (NEGATIVE)
[2020-11-08 18:05] LABS: URINE UROBILINOGEN 0.2 mg/dL (0.2 - 1)
[2020-11-08 18:22] LABS: BACTERIA,URINE FEW /HPF; RBC,URINE 0-5 /HPF (0-5)
[2020-11-08 18:23] LABS: EPITHELIAL CELLS,URINE MODERATE /LPF
[2020-11-08] MEDS: DONEPEZIL HCL 5 MG TAB PO SCH (20:41)
[2020-11-08] MEDS: TEMAZEPAM 15 MG CAP PO PRN (20:41)
[2020-11-08] MEDS: MONTELUKAST SODIUM 10 MG TAB PO SCH (20:41)
[2020-11-08] MEDS: ATORVASTATIN 10 MG TAB PO SCH (20:41)
[2020-11-08] MEDS: MEROPENEM 1GM 100 ML IV SCH (20:41)
[2020-11-09] VITALS (9 sets, daily range): BP systolic 113–172; BP diastolic 53–61
[2020-11-09] MEDS: SODIUM CHLORIDE 0.9% 1000ML 1,000 ML IV SCH ×2 (01:30→11:30)
[2020-11-09] MEDS: ALBUTEROL/IPRATROPIUM 3 ML NEB NEB PRN ×3 (04:20→19:05)
[2020-11-09] MEDS: FUROSEMIDE INJ 10 MG/ML 4 ML VIAL IV SCH ×2 (04:31→16:34)
[2020-11-09] MEDS: LEVOTHYROXINE SODIUM 75 MCG TAB PO SCH (04:31)
[2020-11-09 05:53] LABS: ANION GAP 16.2 mmol/L (8-16); CALCIUM 7.6 mg/dL (8.4-10.2); CREATININE, SERUM 2.27 mg/dL (0.57-1.11); POTASSIUM 3.2 mmol/L (3.5-5.1)
[2020-11-09] MEDS ORDERED: POTASSIUM CHLORIDE 20 MEQ TAB CR PO ONE (11:30)
[2020-11-09] MEDS: CARVEDILOL 3.125 MG TAB PO SCH ×2 (11:53→16:18)
[2020-11-09] MEDS: DOCUSATE SODIUM 100 MG CAP PO SCH ×2 (11:53→16:18)
[2020-11-09] MEDS: FAMOTIDINE 20 MG TAB PO SCH ×2 (11:53→16:18)
[2020-11-09] MEDS: FERROUS SULFATE 325 MG TAB PO SCH (11:54)
[2020-11-09] MEDS: ISOSORBIDE DINITRATE 20 MG TAB PO SCH (11:55)
[2020-11-09] MEDS: HYDRALAZINE HCL 100 MG TABLET PO SCH ×3 (11:55→20:27)
[2020-11-09] MEDS: ALLOPURINOL 100 MG TAB PO SCH (11:56)
[2020-11-09] MEDS: GUAIFENESIN/DEXTROMETHORPHAN LIQD 5 ML UDC PO PRN (16:34)
[2020-11-09] MEDS: MEROPENEM 1GM 100 ML IV SCH (20:26)
[2020-11-09] MEDS: DONEPEZIL HCL 5 MG TAB PO SCH (20:27)
[2020-11-09] MEDS: ATORVASTATIN 10 MG TAB PO SCH (20:27)
[2020-11-09] MEDS: MONTELUKAST SODIUM 10 MG TAB PO SCH (20:28)
[2020-11-10] VITALS (7 sets, daily range): BP systolic 107–157; BP diastolic 56–73
[2020-11-10] MEDS: ALBUTEROL/IPRATROPIUM 3 ML NEB NEB PRN ×3 (01:30→19:15)
[2020-11-10 04:52] LABS: BASOPHILS % 0.5 % (0.0-1.0); EOSINOPHILS # (AUTO) 0.2 (0.0-0.4); EOSINOPHILS % 2.9 % (0.0-6.0); HEMATOCRIT 25.3 % (34.2-44.1); HEMOGLOBIN 8.1 g/dL (12.0-16.0); LYMPHOCYTES # (AUTO) 1.3 (1.0-3.2); LYMPHOCYTES % 20.2 % (18.0-39.1); MEAN CORPUSCULAR HEMOGLOBIN 28.5 pg (28-32); MEAN CORPUSCULAR VOLUME 89.1 fL (81-99); MONOCYTES # (AUTO) 0.6 (0.2-0.8); MONOCYTES % 8.4 % (4.4-11.3); NEUTROPHILS # (AUTO) 4.3 (2.1-6.9); NEUTROPHILS % 66.2 % (38.7-80.0); PLATELET COUNT 129 x10e3/uL (140-360); RED BLOOD COUNT 2.84 x10e6/uL (3.6-5.1); RED CELL DISTRIBUTION WIDTH 15.3 % (11.7-14.4)
[2020-11-10 05:16] LABS: ANION GAP 15.7 mmol/L (8-16); CALCIUM 7.7 mg/dL (8.4-10.2); CREATININE, SERUM 2.02 mg/dL (0.57-1.11); POTASSIUM 3.7 mmol/L (3.5-5.1)
[2020-11-10] MEDS: FUROSEMIDE INJ 10 MG/ML 4 ML VIAL IV SCH ×2 (05:28→16:41)
[2020-11-10] MEDS: LEVOTHYROXINE SODIUM 75 MCG TAB PO SCH (05:28)
[2020-11-10] MEDS: HYDRALAZINE HCL 100 MG TABLET PO SCH ×3 (09:00→20:40)
[2020-11-10] MEDS: CARVEDILOL 3.125 MG TAB PO SCH ×2 (09:00→16:41)
[2020-11-10] MEDS: FAMOTIDINE 20 MG TAB PO SCH ×2 (10:37→16:41)
[2020-11-10] MEDS: DOCUSATE SODIUM 100 MG CAP PO SCH ×2 (10:37→16:41)
[2020-11-10] MEDS: FERROUS SULFATE 325 MG TAB PO SCH (10:38)
[2020-11-10] MEDS: ALLOPURINOL 100 MG TAB PO SCH (10:39)
[2020-11-10] MEDS: ISOSORBIDE DINITRATE 20 MG TAB PO SCH (10:39)
[2020-11-10] MEDS: MEROPENEM 1GM 100 ML IV SCH (20:40)
[2020-11-10] MEDS: MONTELUKAST SODIUM 10 MG TAB PO SCH (20:40)
[2020-11-10] MEDS: DONEPEZIL HCL 5 MG TAB PO SCH (20:40)
[2020-11-10] MEDS: ATORVASTATIN 10 MG TAB PO SCH (20:40)
[2020-11-10] MEDS: GUAIFENESIN/DEXTROMETHORPHAN LIQD 5 ML UDC PO PRN (21:33)
[2020-11-10] MEDS: MORPHINE SULFATE INJ 4 MG/ML INJ 1ML IV PRN (22:36)
[2020-11-11] VITALS: BP 139/64
[2020-11-11 04:00] VITALS: BP 146/69
[2020-11-11 04:56] LABS: BASOPHILS % 0.5 % (0.0-1.0); EOSINOPHILS # (AUTO) 0.3 (0.0-0.4); EOSINOPHILS % 3.8 % (0.0-6.0); HEMATOCRIT 25.4 % (34.2-44.1); HEMOGLOBIN 8.1 g/dL (12.0-16.0); LYMPHOCYTES # (AUTO) 1.4 (1.0-3.2); LYMPHOCYTES % 17.5 % (18.0-39.1); MEAN CORPUSCULAR HEMOGLOBIN 28.1 pg (28-32); MEAN CORPUSCULAR HGB CONC 31.9 g/dL (31-35); MEAN CORPUSCULAR VOLUME 88.2 fL (81-99); MONOCYTES # (AUTO) 0.7 (0.2-0.8); MONOCYTES % 8.5 % (4.4-11.3); NEUTROPHILS # (AUTO) 5.6 (2.1-6.9); NEUTROPHILS % 67.8 % (38.7-80.0); PLATELET COUNT 142 x10e3/uL (140-360); RED BLOOD COUNT 2.88 x10e6/uL (3.6-5.1); RED CELL DISTRIBUTION WIDTH 15.2 % (11.7-14.4)
[2020-11-11 05:14] LABS: ANION GAP 15.6 mmol/L (8-16); CALCIUM 8.3 mg/dL (8.4-10.2); CREATININE, SERUM 1.64 mg/dL (0.57-1.11); POTASSIUM 3.6 mmol/L (3.5-5.1)
[2020-11-11] MEDS: LEVOTHYROXINE SODIUM 75 MCG TAB PO SCH (05:25)
[2020-11-11] MEDS: FUROSEMIDE INJ 10 MG/ML 4 ML VIAL IV SCH (05:25)
[2020-11-11] MEDS: ALBUTEROL/IPRATROPIUM 3 ML NEB NEB PRN (06:42)
[2020-11-11 08:51] VITALS: BP 146/69
[2020-11-11] MEDS: CARVEDILOL 3.125 MG TAB PO SCH (09:00)
[2020-11-11] MEDS: FAMOTIDINE 20 MG TAB PO SCH (09:59)
[2020-11-11] MEDS: DOCUSATE SODIUM 100 MG CAP PO SCH (09:59)
[2020-11-11] MEDS: FERROUS SULFATE 325 MG TAB PO SCH (10:00)
[2020-11-11] MEDS: HYDRALAZINE HCL 100 MG TABLET PO SCH ×2 (10:01→15:14)
[2020-11-11] MEDS: ISOSORBIDE DINITRATE 20 MG TAB PO SCH (10:01)
[2020-11-11] MEDS: ALLOPURINOL 100 MG TAB PO SCH (10:01)
[2020-11-11 10:46] VITALS: BP 158/65
[2020-11-11 12:57] VITALS: BP 169/53
[2020-11-11] MEDS ORDERED: CIPRO500 MG PO (15:20)
[2020-11-11] MEDS ORDERED: CEFUROXIME250 MG PO (15:23)
[2020-12-04] MEDS ORDERED: IBANDRONATE SODIUM 150 MG PO SCH (06:30)
== END 2020-11-11 16:20 | disposition home or self-care (01) | DRG 871 ==
LOC: ER 15:43 → ERHOLD 17:54 → MED/SURG2 20:22
PROVIDERS: ADMIT Internal Medicine; ATTEND Internal Medicine
DX: A41.51 Sepsis due to Escherichia coli [E. coli] (principal); I50.33 Acute on chronic diastolic (congestive) heart failure; N39.0 Urinary tract infection, site not specified; I13.0 Hypertensive heart and chronic kidney disease with heart failure and stage 1 through stage 4 chronic kidney disease, or unspecified chronic kidney disease; N17.9 Acute kidney failure, unspecified; N12 Tubulo-interstitial nephritis, not specified as acute or chronic; E11.22 Type 2 diabetes mellitus with diabetic chronic kidney disease; Z79.899 Other long term (current) drug therapy; F03.90 Unspecified dementia, unspecified severity, without behavioral disturbance, psychotic disturbance, mood disturbance, and anxiety; J44.9 Chronic obstructive pulmonary disease, unspecified; E03.9 Hypothyroidism, unspecified; E87.6 Hypokalemia; N18.32 Chronic kidney disease, stage 3b; M10.9 Gout, unspecified; Z86.73 Personal history of transient ischemic attack (TIA), and cerebral infarction without residual deficits; Z95.810 Presence of automatic (implantable) cardiac defibrillator; H91.90 Unspecified hearing loss, unspecified ear; B96.1 Klebsiella pneumoniae [K. pneumoniae] as the cause of diseases classified elsewhere; B96.5 Pseudomonas (aeruginosa) (mallei) (pseudomallei) as the cause of diseases classified elsewhere
CPT/HCPCS: 36415; 70450; 71045; 76770; 80048; 80053; 80061; 81001; 82948; 83036; 83605; 83735; 83880; 84100; 84443; 84484; 85025; 87040; 87071; 87086; 87186; 87205; 93005; 93306; 94640; 96361; 97139; 99251; 99284; J1940; J2270; J2543; J7030; U0002